=== PATIENT | male | born 1940 | race Caucasian/White ===

== ENCOUNTER 2016-11-07 06:59 | Inpatient (IN) | payer MEDICARE, OTHER ==
[2016-10-10 10:29] VITALS: BMI 32.0
--- NOTE | 2016-10-10 10:36 | PAT Medication Instructions ---
Service Date Oct 10, 2016. Current Home Medication List Acetaminophen Tab (Tylenol), 650 MG PO TID PRN for RN Ampicillin (Ampicillin), 2,000 MG PO UD PRN for RN Aspirin (Aspirin Ec), 81 MG PO QAM Budesonide (Nasal) (Rhinocort Allergy), 1 SPRAY ISHA QPM Ergocalciferol (Vitamin D 88423 Unit), 1 TAB PO WK Insulin Aspart 70/30 (Novolog Mix 70/30), 35 UNITS SC QAM Insulin Aspart Protamine & Asp (Novolog Mix 70/30), 25 UNITS SC QPM Lisinopril (Zestril), 2.5 MG PO QAM Loperamide Hcl (Anti-Diarrheal), 2 MG PO QAM Loratadine (Claritin), 10 MG PO QAM Metoprolol Tartrate (Lopressor) (Lopressor), 25 MG PO BID Multivitamin (Multivitamin), 1 TAB PO QAM Quetiapine Fumarate (Seroquel), 50 MG PO QPM Rosuvastatin Calcium (Crestor), 10 MG PO QAM Sertraline (Zoloft), 100 MG PO QPM Trazodone Hcl (Trazodone), 25 MG PO HS Medication Instructions For Your Scheduled Surgery Ergocalciferol (Vitamin D 60407 Unit), 1 TAB PO WK (okay to continue as directed ) - Check with surgeon for instructions (otherwise okay to continue from anesthesia perspective): Aspirin (Aspirin Ec), 81 MG PO QAM - Hold the following medications the morning of surgery: Multivitamin (Multivitamin), 1 TAB PO QAM Lisinopril (Zestril), 2.5 MG PO QAM Loperamide Hcl (Anti-Diarrheal), 2 MG PO QAM Loratadine (Claritin), 10 MG PO QAM - Take the following medications the morning of surgery with a sip of water: Rosuvastatin Calcium (Crestor), 10 MG PO QAM Acetaminophen Tab (Tylenol), 650 MG PO TID PRN for RN Ampicillin (Ampicillin), 2,000 MG PO UD PRN for RN Metoprolol Tartrate (Lopressor) (Lopressor), 25 MG PO BID - Take the following medications as scheduled the night before surgery: Sertraline (Zoloft), 100 MG PO QPM Trazodone Hcl (Trazodone), 25 MG PO HS Quetiapine Fumarate (Seroquel), 50 MG PO QPM Insulin Aspart Protamine & Asp (Novolog Mix 70/30), 25 UNITS SC QPM Budesonide (Nasal) (Rhinocort Allergy), 1 SPRAY ISHA QPM Ampicillin (Ampicillin), 2,000 MG PO UD PRN for RN Metoprolol Tartrate (Lopressor) (Lopressor), 25 MG PO BID - For Insulin Dependent Diabetic patients: Test blood sugar A.M. of surgery. - If Blood sugar greater than 150, take half of your regular dose of: Insulin Aspart 70/30 (Novolog Mix 70/30), take 17 units - If Blood sugar less than 150, do not take any: Insulin Aspart 70/30 ( Novolog Mix 70/30) If you have any questions please call us at [phone] or [phone] or [phone]
[2016-10-10 13:54] VITALS: BMI 32.0
[2016-11-07] VITALS (22 sets, daily range): BP systolic 86–131; BP diastolic 44–77; PULSE 67–101; TEMP 36.6; O2SAT 91–98; Ht 182.9 cm; Wt 114.1 kg
[~2016-11-07] VITALS: Ht 182.9 cm; Wt 114.1 kg
[~2016-11-07 06:59] MED LIST: ACET325T96 PO; AMPI500C9 PO; ASPI81TA28 PO; BUDE1SUS8 NAE; CLR10 PO; CRS/10 PO; ERGO1CAP41 PO; LACTATED RINGER'S 1000ML 1,000 ML IV SCH; LISI-729 PO; LOPE1CAP6 PO; METO25TA56 PO; MULT-506 PO; NVLGI7030 SC; QUET1TAB32 PO; SERT-234 PO; TRAZ50TA35 PO
--- NOTE | 2016-11-07 08:17 | History and Physical ---
History & Physical Date Nov 07, 2016. History of Present Illness The patient is a 76 year old male with complaints of shortness of breath. 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 He was living independently before his surgery but now is living in an assisted living area. He wishes to return home but remained so weak he has difficulty with dyspnea that he cannot. He's had no fevers. He's had no productive cough. He has a recurrent left pleural effusion. He denies chest pain. He underwent a thoracentesis for 800 mL of bloody fluid a month or so after the surgery and then had another thoracentesis several months after the surgery but only at 20 cc's of dark bloody fluid. CT scan was performed is get some loculations of this left pleural effusion. Dr. Slick Chavez from [facility] referred this patient to me. I had a long talk with the patient in the office and on the morning of surgery. Given his comorbidities he does have some risk with this operation however, I do not think that simply trying to drain this again will be helpful. I also mitral of the fact the patient has an apparent left internal mammary artery pedicle graft. It appears that most of his problems is in the left base. He is eager to have this done in the hopes that his breathing will improve. We are going to proceed with a thoracoscopic decortication and pleurectomy with evacuation of pleural contents on 11/08/2016. Past Medical/Surgical History His past medical history significant for coronary artery disease depression diabetes mellitus, diabetic nephropathy, diabetic peripheral neuropathy, dyslipidemia, hypertension, obesity, and albuminuria. His past surgical history significant for an aortic valve replacement coronary artery bypass grafting January 2016. He's also an appendectomy cataract extraction percutaneous transluminal angioplasty and stent cholecystectomy and history of questionable pancreatic surgery. Allergies Coded Allergies: No Known Allergies (Unverified , 11/07/16) Home Medications Scheduled Aspirin (Aspirin Ec), 81 MG PO QAM Budesonide (Nasal) (Rhinocort Allergy), 1 SPRAY ISHA QPM Ergocalciferol (Vitamin D 10786 Unit), 1 TAB PO WK Insulin Aspart 70/30 (Novolog Mix 70/30), 35 UNITS SC QAM Insulin Aspart Protamine & Asp (Novolog Mix 70/30), 25 UNITS SC QPM Lisinopril (Zestril), 2.5 MG PO QAM Loperamide Hcl (Anti-Diarrheal), 2 MG PO QAM Loratadine (Claritin), 10 MG PO QAM Metoprolol Tartrate (Lopressor) (Lopressor), 25 MG PO BID Multivitamin (Multivitamin), 1 TAB PO QAM Quetiapine Fumarate (Seroquel), 50 MG PO QPM Rosuvastatin Calcium (Crestor), 10 MG PO QAM Sertraline (Zoloft), 100 MG PO QPM Trazodone Hcl (Trazodone), 25 MG PO HS Scheduled PRN Acetaminophen Tab (Tylenol), 650 MG PO TID PRN for RN Ampicillin (Ampicillin), 2,000 MG PO UD PRN for RN Physical Examination Addiitonal Comments: Physical exam this is an elderly male who is sallow in appearance. He is awake alert and oriented. On evaluation of his eyes his sclerae are pale but anicteric. His pupils are equally round and reactive. Extraocular movements appear to be intact. He has no nasal polyps. His tongue is midline. His neck is supple. I detect no supraclavicular cervical lymphadenopathy. He has no carotid bruits. His no neck vein distention or tracheal deviation. His decreased breath sounds on the left. He has a well-healed sternotomy incision with no click. Has a regular rate and rhythm his heart. He is moving air well on the right side. He has no wheezing. His abdomen is a bit protuberant but soft and nontender. 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 He has good bowel sounds and no evidence of abdominal aortic aneurysm. He has good femoral pulses. I can palpate pedal pulses. He doesn't really have any edema. He has no joint effusions. Neurologically he's awake and alert. He is a bit slow to answer. He has no obvious focal deficits and moves all 4 extremities to command. Diagnosis Recurrent left pleural effusion status post coronary artery bypass grafting and aortic valve replacement in January 2016 via a midline sternotomy. Plan of Treatment I did take this patient to the operating room on 11/07/2016 perform a left thoracoscopy with evacuation of pleural contents pleurectomy possible decortication. We have discussed this in the office in detail. He has risks which include bleeding infection lung injury. Is also a chance he could remain ventilator-dependent. I'm concerned about his kidneys also. We discussed this in detail. He states he "cannot live like this ". We will proceed with surgery.
[2016-11-07] MEDS ORDERED: ROCURONIUM BROMIDE 10 MG/ML 5 ML VIAL IV ONE ×2 (08:49→10:43)
[2016-11-07] MEDS ORDERED: LIDOCAINE HCL 2% 2 ML VIAL (20MG/ML) ONE (08:49)
[2016-11-07] MEDS ORDERED: PROPOFOL IV EMULSION 10 MG/ML 20 ML VIAL IV ONE ×2 (08:49→10:12)
[2016-11-07] MEDS ORDERED: FENTANYL CITRATE INJ 50 MCG/1 ML 2 ML VIAL ONE ×3 (08:49→14:57)
[2016-11-07] MEDS ORDERED: BUPIVACAINE LIPOSOME 1/3% 266 MG/20 ML VIAL INFIL ONE ×2 (08:53→13:30)
[2016-11-07] MEDS ORDERED: SODIUM CHLORIDE 0.9% PF 50 ML VIAL ONE ×2 (08:53→13:30)
[2016-11-07] MEDS ORDERED: MIDAZOLAM HCL 1 MG/ML 2ML VIAL ONE (09:02)
[2016-11-07] MEDS ORDERED: CEFAZOLIN SOD 1 GM VIAL ONE (10:10)
[2016-11-07] MEDS ORDERED: LABETALOL HCL IV 5 MG/ML 20ML IV ONE ×2 (10:12→11:09)
[2016-11-07] MEDS ORDERED: MEPERIDINE HCL 25 MG/ML CARP IV PRN (11:15)
[2016-11-07] MEDS ORDERED: ATROPINE SULFATE 0.1 MG/ML 5ML SYR IV PRN (11:15)
[2016-11-07] MEDS ORDERED: ONDANSETRON INJ 2 MG/ML 2 ML VIAL IV PRN ×2 (11:15→15:30)
[2016-11-07] MEDS ORDERED: HYDROmorphone INJ 1 MG/ML SYR IV PRN (11:15)
[2016-11-07] MEDS ORDERED: FENTANYL CITRATE INJ 50 MCG/1 ML 2 ML VIAL IV PRN (11:15)
[2016-11-07] MEDS ORDERED: EpHEDrine SULFATE INJ 50 MG/ML AMP IV PRN (11:15)
[2016-11-07] MEDS ORDERED: LABETALOL HCL IV 5 MG/ML 20ML IV PRN (11:15)
[2016-11-07] MEDS ORDERED: EpHEDrine SULFATE 50MG/5ML SYR ONE (12:50)
[2016-11-07] MEDS ORDERED: GLYCOPYRROLATE INJ 0.2 MG/ML VIAL ONE (13:12)
[2016-11-07] MEDS ORDERED: NEOSTIGMINE METHYLSULFATE 5 MG/5 ML SYR ONE (13:12)
[2016-11-07] MEDS ORDERED: ONDANSETRON INJ 2 MG/ML 2 ML VIAL ONE (13:13)
[2016-11-07] MEDS ORDERED: NovoLIN-R INSULIN PER UNIT CHARGE ONE (14:57)
[2016-11-07] MEDS ORDERED: D5W AND 1/2NSS 1,000 ML IV SCH (15:21)
[2016-11-07] MEDS ORDERED: NITROGLYCERIN/D5W 100 MCG/ML 250 ML IV PRN (15:21)
[2016-11-07] MEDS ORDERED: MoRPHine SULFATE 4 MG/ML 1 ML CARP\\VIAL IV PRN ×2 (15:30→17:15)
[2016-11-07] MEDS ORDERED: PHARMACY GLYCEMIC MGMT CONSULT PRN (15:35)
[2016-11-07] MEDS ORDERED: GLUCOSE 40% GEL 15 GM TUBE PO PRN (16:00)
[2016-11-07] MEDS ORDERED: GLUCOSE 10 TABS/TUBE PO PRN (16:00)
[2016-11-07] MEDS ORDERED: GLUCAGON FOR INJ 1 MG VIAL SQ PRN (16:00)
--- NOTE | 2016-11-07 16:00 | Anesthesiology Progress Note ---
Anesthesia Post Op Note Date & Time Nov 07, 2016 at 15:59 Vital Signs Pain Intensity: 0 Vital Signs Past 12 Hours Date Time Temp Pulse Resp B/P (MAP) Pulse Ox O2 Delivery O2 Flow Rate FiO2 11/07/16 15:56 36.1 84 18 96/59 98 Nasal Cannula 4 11/07/16 14:59 36.2 82 16 86/55 96 Mask 15 11/07/16 08:05 36.6 67 20 131/74 95 Room Air Notes Mental Status: alert / awake / arousable, participated in evaluation Pt Amnestic to Procedure: Yes Nausea / Vomiting: adequately controlled Pain: adequately controlled Airway Patency, RR, SpO2: stable & adequate BP & HR: stable & adequate Hydration State: stable & adequate Anesthetic Complications: no major complications apparent
--- NOTE | 2016-11-07 16:02 | DIAGNOSTIC IMAGING REPORT ---
SINGLE VIEW CHEST CLINICAL HISTORY: Postoperative examination. FINDINGS: An AP, portable, upright chest radiograph is compared to study dated 08/18/2014 and correlated with chest CT dated 09/22/2016. The examination is degraded by portable technique and patient rotation. The patient is status post midline sternotomy. The heart is enlarged and there is atherosclerotic calcification of the thoracic aorta. The pulmonary vasculature is noncongested. A left-sided chest tube has been placed, with the tip terminating at the left apex. There is a small left apical pneumothorax with at least 12 mm of pleural separation. A left pleural effusion has decreased in size. There is residual pleural fluid at the left lung base with left basilar consolidation. The right lung is grossly clear. No right-sided pneumothorax is seen. The skeletal structures are osteopenic. Advanced arthritic change is seen in the shoulders. Subcutaneous emphysema is noted in the left lower neck. IMPRESSION: 1. A left-sided chest tube has been placed. There is a small left apical pneumothorax. 2. Left pleural effusion has decreased in size from the 09/22/[address] There is residual pleural fluid and airspace consolidation at the left lung base. 3. The right lung is grossly clear. 4. Cardiomegaly without radiographic evidence of congestive failure. Electronically signed by: Chiki Peters M.D. 11/07/2016 4:01 PM Dictated Date/Time: 11/07/2016 3:56 PM
--- NOTE | 2016-11-07 16:11 | Pharmacy Progress Note ---
Glycemic Control Intl Consult Date of Service Nov 07, 2016. Scope Glycemic Pharmacist consulted by Dr Marie on 11/07 for glycemic control and to write orders per [facility] inpatient glycemic control protocol Objective Weight (Kilograms): 113.5 Accuchecks BSG (last 24hrs): Test 11/07/16 07:50 11/07/16 14:51 Bedside Glucose 245 mg/dl (70-99) 300 mg/dl (70-99) Laboratory Data (last 24hrs) Test 11/07/16 15:21 HbA1c Ordered for 11/08/16 Recent Pertinent Medications Outpatient Anti-diabetic Regimen: * Novolog 70/30 35 units AM (received 1/2 dose 11/07 AM pre-op), 25 units PM * A1c = unknown, ordered for tomorrow Risk Factors for Insulin Resistance: * Recent Surgery: POD 0 s/p thorascopy/pleurectomy * Diet: T2DM Assessment & Plan ASSESSMENT: * ADA & AACE recommend a goal blood sugar range 140-180 mg/dl for the majority of critically ill & non-critically ill patients. However, more stringent targets may be selected in individual cases. * 76 yo M with unknown outpatient control of diabetes admitted for thorascopy/ pleurectomy * Pre-op BSG 245 mg/dL (patient received 1/2 dose of home Novolog 70/30 this AM) . Post-op BSG elevated to 300 mg/dL - received 10 units of regular insulin SC in OR * Outpatient regimen is premixed basal/prandial insulin of Novolog 70/30 mix insulin. * Pre-mixed insulin is difficult to titrate since it is already in a fixed distribution of basal:prandial insulin. Continuing pre-mixed insulin for admission typically lead to hypoglycemia d/t changing PO status but rapid acting insulin is unable to be held. * Home regimen will be held for admission per pharmacy consult. Will utilize recommended regimen of SQ basal bolus insulin regimen with Lantus + NovoLog (CF+ CR) for now. Will consider transition to NPH as basal insulin tomorrow which will help facilitate easier conversion back to Novolog 70/30 as outpatient * Patient only received 1/2 dose Novolog 70/30 this AM - will be more aggressive with basal insulin x1 now, especially as BSG's are very elevated post -op * Will start weight-based dosing of Novolog * Will add in two overnight BSG checks to provide additional insulin, if necessary PLAN FOR INPATIENT GLYCEMIC CONTROL: * Basal insulin with LANTUS 25 units SQ x1 now - may consider changing to NPH tomorrow * Correctional Insulin with NOVOLOG per scale ACHS with two additional checks overnight * Goal Range: Low 110 mg/dL - High 140 mg/dL * Correction Factor: 20 mg/dL/unit * Nutritional / Prandial insulin per carb ratio of 1 unit per 7 grams CHO consumed * Please note that the plan above was derived based on current level of insulin resistance and hospital stress. These recommendations are appropriate for inpatient admission only. Plan of care upon discharge will need to be reassessed to avoid potential outpatient hypo/hyperglycemia. Thank you.
[2016-11-07 17:01] LABS: HEMATOCRIT 38.5 % (42-52); MEAN CELL VOLUME 87.3 fL (80-100); MEAN CORPUSCULAR HEMOGLOBIN 28.8 pg (25-34); MEAN PLATELET VOLUME 8.8 fL (7.4-10.4); PLATELET COUNT 133 K/uL (130-400); RED BLOOD COUNT 4.41 M/uL (4.7-6.1); WHITE BLOOD COUNT 13.97 K/uL (4.8-10.8)
[2016-11-07] MEDS ORDERED: MoRPHine SULFATE 2 MG/ML CARP IV PRN (17:15)
[2016-11-07 17:17] LABS: CALCIUM 8.9 mg/dl (8.5-10.1); MAGNESIUM 1.7 mg/dl (1.8-2.4)
[2016-11-07] MEDS ORDERED: INSULIN IV INFUSION PROTOCOL STA (17:22)
[2016-11-07] MEDS ORDERED: INSULIN PROTOCOL GOAL RANGE ONE (17:30)
[2016-11-07] MEDS ORDERED: MODERATE STRESS LEVEL ONE (17:30)
[2016-11-07] MEDS ORDERED: INSULIN ASPART 100 UNITS/ML 3 ML PEN SC SCH ×2 (17:45→21:00)
[2016-11-07] MEDS ORDERED: LANTUS PER UNIT CHARGE SQ ONE (17:45)
[2016-11-07] MEDS: SODIUM CHLORIDE 0.45% 1000ML 1,000 ML IV SCH (17:56)
[2016-11-07] MEDS ORDERED: INSULIN HUMAN REGULAR IV BOLUS 3 UNIT in SYRINGE 0 ML IV SCH (18:00)
--- NOTE | 2016-11-07 18:09 | Critical Care Consultation ---
Critical Care Consultation Date of Consultation: Nov 07, 2016. Attending Physician: Humphrey Marie MD Reason for Consultation: Status post LEFT video-assisted thoracoscopy with draining of effusion and decortication History of Present Illness Patient is a 76-year-old male who presents to the ICU after having LEFT video- assisted thoracoscopy with draining of effusion and decortication performed today by Dr. Marei. Patient tolerated procedure well overall. There is estimated blood loss 100 mL. He received 2400 mL of fluids intraoperatively. The patient has a past medical history is complicated by coronary artery disease with CABG and aortic valve (Bovine) replacement performed at [facility]. It was initially thought that this was performed in 2015, however after further conversation, Dr. Bowers feels this was likely done in January 2014. The patient is had subsequent recurrent LEFT-sided pleural effusions. He has had draining of the pleural effusions 3. He suddenly followed up with Dr. angelica gomez and surgical intervention was indicated. Patient currently complains of some mild discomfort to the LEFT-sided chest wall rating his pain at 2/10. He feels well overall. He does describe some mild discomfort in his throat after intubation procedure. He denies any headaches, dizziness, lightheadedness, palpitations, shortness of breath, hemoptysis, vomiting, or extremity pain. Past Medical/Surgical History MEDICAL HISTORY: Coronary artery disease Depression Diabetes mellitus Diabetic neuropathy Diabetic peripheral neuropathy Dyslipidemia Hypertension Obesity Albuminuria SURGICAL HISTORY: Aortic valve replacement Coronary artery bypass grafting PTCA with stenting Cholecystectomy Possible pancreatic surgery Family History No pertinent past family history. Social History Smoking Status: Former Smoker Smokeless Tobacco Use: No Alcohol Use: none Marital Status: Housing Status: half-way Occupation Status: retired Allergies Coded Allergies: No Known Allergies (Unverified , 11/07/16) Home Medications Scheduled Aspirin (Aspirin Ec), 81 MG PO QAM Budesonide (Nasal) (Rhinocort Allergy), 1 SPRAY ISHA QPM Ergocalciferol (Vitamin D 06419 Unit), 1 TAB PO WK Insulin Aspart 70/30 (Novolog Mix 70/30), 35 UNITS SC QAM Insulin Aspart Protamine & Asp (Novolog Mix 70/30), 25 UNITS SC QPM Lisinopril (Zestril), 2.5 MG PO QAM Loperamide Hcl (Anti-Diarrheal), 2 MG PO QAM Loratadine (Claritin), 10 MG PO QAM Metoprolol Tartrate (Lopressor) (Lopressor), 25 MG PO BID Multivitamin (Multivitamin), 1 TAB PO QAM Quetiapine Fumarate (Seroquel), 50 MG PO QPM Rosuvastatin Calcium (Crestor), 10 MG PO QAM Sertraline (Zoloft), 100 MG PO QPM Trazodone Hcl (Trazodone), 25 MG PO HS Scheduled PRN Acetaminophen Tab (Tylenol), 650 MG PO TID PRN for RN Ampicillin (Ampicillin), 2,000 MG PO UD PRN for RN Current Inpatient Medications Current Inpatient Medications Medications (Trade) Dose Ordered Sig/Agata Route Start Time Stop Time Status Last Admin Dose Admin Lactated Ringer's 1,000 ml @ 15 mls/hr Q24H IV 11/07/16 06:00 11/08/16 05:59 11/07/16 08:13 15 MLS/HR Miscellaneous Information (Consult Glycemic Management Pharmacy) 1 ea UD PRN N/A 11/07/16 15:35 12/07/16 15:34 Nitroglycerin/ Dextrose 250 ml @ 0 mls/hr Q0M PRN IV 11/07/16 15:21 12/07/16 15:20 Metoclopramide HCl 10 mg/Syringe 2 ml @ 2 mls/min Q8H IV 11/08/16 13:00 11/10/16 05:00 Ondansetron HCl (Zofran Inj) 4 mg Q6H PRN IV 11/07/16 15:30 12/07/16 15:29 Aspirin (Ecotrin Tab) 81 mg QAM PO 11/08/16 09:00 12/08/16 08:59 Budesonide (Rhinocort Aq Nasal [place]) 1 sprays QPM ISHA 11/07/16 21:00 12/07/16 20:59 Lisinopril (Zestril Tab) 2.5 mg QAM PO 11/08/16 09:00 12/08/16 08:59 Loperamide HCl (Imodium Cap) 2 mg QAM PO 11/08/16 09:00 12/08/16 08:59 Loratadine (Claritin Tab) 10 mg QAM PO 11/08/16 09:00 12/08/16 08:59 Metoprolol Tartrate (Lopressor Tab) 25 mg BID PO 11/07/16 21:00 12/07/16 20:59 Multivitamins (Multivitamin Tab) 1 tab QAM PO 11/08/16 09:00 12/08/16 08:59 Quetiapine Fumarate (seroQUEL TAB) 50 mg QPM PO 11/07/16 21:00 12/07/16 20:59 Sertraline HCl (Zoloft Tab) 100 mg QPM PO 11/07/16 21:00 12/07/16 20:59 Trazodone HCl (Desyrel Tab) 25 mg HS PO 11/07/16 21:00 12/07/16 20:59 Glucose (Glucose 40% Gel) 15-30 GRAMS 15 GRAMS... UD PRN PO 11/07/16 16:00 12/07/16 15:59 Glucose (Glucose Chew Tab) 4-8 Tablets 4 Tabl... UD PRN PO 11/07/16 16:00 12/07/16 15:59 Dextrose (Dextrose 50% 50ML Syringe) 25-50ML OF 50% DW IV FOR... UD PRN IV 11/07/16 16:00 12/07/16 15:59 Glucagon (Glucagon Inj) 1 mg UD PRN SQ 11/07/16 16:00 12/07/16 15:59 Sodium Chloride 1,000 ml @ 100 mls/hr Q10H IV 11/07/16 16:00 12/07/16 15:59 Morphine Sulfate (MoRPHine SULFATE INJ) 2 mg Q2H PRN IV 11/07/16 17:15 11/21/16 17:14 Morphine Sulfate (MoRPHine SULFATE INJ) 4 mg Q2H PRN IV 11/07/16 17:15 11/21/16 17:14 Insulin Glargine (Lantus Per Unit) 25 units NOW ONCE SQ 11/07/16 17:45 11/07/16 17:46 Insulin Aspart (novoLOG ASPART) SLIDING SCALE ACHS SC 11/07/16 17:45 12/07/16 17:44 Insulin Aspart (novoLOG ASPART) SLIDING SCALE TODAY@0000,0400 SC 11/08/16 00:00 11/08/16 04:01 Review of Systems A complete 10-point Review of Systems was discussed with the patient, with pertinent positives and negatives listed in the History of Present Illness. All remaining Review of Systems questions can be considered negative unless otherwise specified. Physical Exam Date Time Temp Pulse Resp B/P (MAP) Pulse Ox O2 Delivery O2 Flow Rate FiO2 11/07/16 16:20 96/57 1817 16:20 96/57 1817 16:18 86 22 94/40 97 1817 16:18 86 22 94/40 97 17 16:18 87 22 17 16:18 87 22 1817 16:15 95/57 17 16:15 95/57 11/07/16 16:13 86 19 11/07/16 16:13 86 19 93/40 97 17 16:13 86 19 17 16:13 86 19 93/40 97 17 16:10 99/55 17 16:10 99/55 11/07/16 16:08 85 26 17 16:08 86 26 92/37 98 1817 16:08 85 26 17 16:08 86 26 92/37 98 1817 16:05 92/55 17 16:05 92/55 11/07/16 16:03 85 19 1817 16:03 85 19 97/40 97 1817 16:03 85 19 97/40 97 1817 16:03 85 19 1817 16:00 95/56 17 16:00 95/56 17 15:58 85 20 18/17 15:58 86 20 93/38 98 18/17 15:58 86 20 93/38 98 18/17 15:58 85 20 18/17 15:56 36.1 84 18 96/59 98 Nasal Cannula 4 11/07/16 15:55 96/59 18/17 15:55 96/59 18/17 15:53 85 20 102/42 98 18/17 15:53 85 20 18/17 15:53 85 20 102/42 98 18/17 15:53 85 20 18/17 15:50 88/57 8/18/17 15:50 88/57 8/18/17 15:48 88 28 8/18/17 15:48 88 28 8/18/17 15:48 86 28 93/39 99 8/18/17 15:48 86 28 93/39 99 8/18/17 15:45 98/56 8/18/17 15:45 98/56 8/18/17 15:43 85 23 103/42 97 8/18/17 15:43 85 23 103/42 97 8/18/17 15:43 85 23 8/18/17 15:43 85 23 8/18/17 15:40 93/57 8/18/17 15:40 93/57 8/18/17 15:38 83 20 93/40 97 8/18/17 15:38 84 20 8/18/17 15:38 83 20 93/40 97 8/18/17 15:38 84 20 8/18/17 15:35 91/54 8/18/17 15:35 91/54 8/18/17 15:33 84 19 93/40 97 8/18/17 15:33 85 19 8/18/17 15:33 85 19 8/18/17 15:33 84 19 93/40 97 8/18/17 15:30 94/53 8/18/17 15:30 94/53 8/18/17 15:28 85 20 92/38 98 8/18/17 15:28 79 20 8/18/17 15:28 85 20 92/38 98 8/18/17 15:28 79 20 8/18/17 15:25 89/55 8/18/17 15:25 89/55 8/18/17 15:23 85 20 8/18/17 15:23 85 20 92/39 99 8/18/17 15:23 85 20 92/39 99 8/18/17 15:23 85 20 8/18/17 15:20 96/58 8/18/17 15:20 96/58 8/18/17 15:18 83 20 94/40 97 8/18/17 15:18 83 20 8/18/17 15:18 83 20 8/18/17 15:18 83 20 94/40 97 8/18/17 15:15 97/54 8/18/17 15:15 97/54 8/18/17 15:13 82 20 1817 15:13 83 20 94/40 100 11/07/16 15:13 82 20 17 15:13 83 20 94/40 100 17 15:10 94/53 11/07/16 15:10 94/53 11/07/16 15:08 83 22 11/07/16 15:08 83 22 89/39 97 11/07/16 15:08 83 22 89/39 97 11/07/16 15:08 83 22 11/07/16 15:05 95/55 11/07/16 15:05 95/55 11/07/16 15:03 82 20 93/40 99 11/07/16 15:03 82 20 93/40 99 11/07/16 15:03 82 20 11/07/16 15:03 82 20 11/07/16 15:00 108/59 11/07/16 15:00 108/59 11/07/16 14:59 36.2 82 16 86/55 96 Mask 15 11/07/16 14:58 84 19 11/07/16 14:58 84 19 11/07/16 14:58 84 19 119/49 97 11/07/16 14:58 84 19 119/49 97 11/07/16 14:55 123/84 11/07/16 14:55 123/84 11/07/16 14:53 82 22 86/38 97 11/07/16 14:53 83 22 11/07/16 14:53 82 22 86/38 97 11/07/16 14:53 83 22 11/07/16 14:50 101/55 11/07/16 14:50 101/55 11/07/16 14:48 83 22 11/07/16 14:48 82 22 86/55 98 11/07/16 08:05 36.6 67 20 131/74 95 Room Air VITAL SIGNS - Vital signs and nursing notes were reviewed. GENERAL - 76-year-old male appearing his stated age who is in no acute distress. Communicates well with provider and answers questions appropriately. There does appear to be an element of confusion. HEAD - NC/AT. EYES - PERRL with EOMI bilaterally. Sclera anicteric. Palpebral conjunctiva pink and moist with no injection noted. NOSE - Midline and without cyanosis. No epistaxis or purulent drainage noted. Septum midline without deviation or septal hematoma noted. MOUTH/OROPHARYNX - Without perioral cyanosis. Buccal mucosa pink and moist and without leukoplakia. Tongue midline with equal elevation of palate bilaterally. No tonsillar hypertrophy, erythema, or exudates noted. NECK - Neck with FROM. Supple to palpation. LUNGS - Chest wall symmetric without accessory muscle use, intercostals retractions, or central cyanosis. Normal vesicular breath sounds CTA B/L. No wheezes, rales, or rhonchi appreciated. Chest tube in place to the LEFT lateral chest well with scant bloody discharge noted in the tube. CARDIAC - RRR with S1/S2. No murmur, rubs, or gallops appreciated. No reproducible tenderness to palpation appreciated over the anterior chest wall. ABDOMEN - Abdominal contour obese and without pulsations or visible masses. BS normoactive all four quadrants. No tenderness, palpable masses, hepatosplenomegaly, or ascites noted. EXTREMITIES - No clubbing or peripheral cyanosis. No pretibial edema present. +3 /5 radial and dorsalis pedis pulses palpated throughout. +5/5 strength noted in UE/LE bilaterally. NEUROLOGIC - Cranial nerves II through XII grossly intact. PSYCH - A&Ox3 and cooperates fully with examiner. Pt is very pleasant and interacts well with examiner. Laboratory Results Last 24 Hours Test 11/07/16 07:50 11/07/16 14:51 11/07/16 16:51 Bedside Glucose 245 mg/dl 300 mg/dl White Blood Count 13.97 K/uL Red Blood Count 4.41 M/uL Hemoglobin 12.7 g/dL Hematocrit 38.5 % Mean Corpuscular Volume 87.3 fL Mean Corpuscular Hemoglobin 28.8 pg Mean Corpuscular Hemoglobin Concent 33.0 g/dl RDW Standard Deviation 46.4 fL RDW Coefficient of Variation 14.6 % Platelet Count 133 K/uL Mean Platelet Volume 8.8 fL Calcium Level 8.9 mg/dl Magnesium Level 1.7 mg/dl Diagnostic Results Radiological imaging and reports were reviewed by myself. Radiologist's Interpretation as follows: SINGLE VIEW CHEST CLINICAL HISTORY: Postoperative examination. FINDINGS: An AP, portable, upright chest radiograph is compared to study dated 08/18/2014 and correlated with chest CT dated 09/22/2016. The examination is degraded by portable technique and patient rotation. The patient is status post midline sternotomy. The heart is enlarged and there is atherosclerotic calcification of the thoracic aorta. The pulmonary vasculature is noncongested. A left-sided chest tube has been placed, with the tip terminating at the left apex. There is a small left apical pneumothorax with at least 12 mm of pleural separation. A left pleural effusion has decreased in size. There is residual pleural fluid at the left lung base with left basilar consolidation. The right lung is grossly clear. No right-sided pneumothorax is seen. The skeletal structures are osteopenic. Advanced arthritic change is seen in the shoulders. Subcutaneous emphysema is noted in the left lower neck. IMPRESSION: 1. A left-sided chest tube has been placed. There is a small left apical pneumothorax. 2. Left pleural effusion has decreased in size from the 09/22/[address] There is residual pleural fluid and airspace consolidation at the left lung base. 3. The right lung is grossly clear. 4. Cardiomegaly without radiographic evidence of congestive failure. Assessment & Plan (1) Diabetes (2) CAD (coronary artery disease) (3) H/O aortic valve replacement (4) Hypertension (5) Pleural effusion on left (6) Heart disease (7) Depression Reason Critically Ill: Admitted for close monitoring status post LEFT video- assisted thoracoscopy with draining of effusion and decortication. Neuro - * CAM ICU: NEGATIVE * Pain control as needed s/p VATS - Morphine on order. * Depression: Home Rx Cardiac - * History of CABG w/ Bovine Aortic Valve Replacement. * Continue outpatient medications. * Monitor on telemetry. * Hypertension * Continue home Rx. * EKGs for any chest pain. Respiratory - * Status Post LEFT VATS w/ Drainage of Pleural Effusion and Decortication. * Chest Tube in place with 30 suction on 4h/off 4h per Dr. Marie. * Small LEFT Apical Pneumothorax. * To be expected. Monitor for hemodynamic instability. * Repeat CXRs to resolution. * Dr. Marie requests consult for any issues overnight. GI - * Diabetic Diet. * Progress as tolerated. RENAL/LYTES - * Monitor electrolytes daily - correct appropriately. * Received 2400 mL IVF in OR. Will discontinue once tolerating POs. - * Isaacs Catheter in place. * Consider d/c in AM if patient continues to progress. ENDO - * DM: * Insulin gtt initiated for BSGs >249. * Likely 2/2 stress of recent surgery. Will reassess per protocol. HEME - * Stable H&H. * Will monitor closely for any hemodynamic instability. ID - * No s/s of infection at this point. * Monitor fever curve. LINES/IV ACCESS - * PIVs intact. * RIGHT Radial Arterial Line In Place * LEFT Chest Tube DVT PROPHYLAXIS - * SCDs in place. * Defer chemical prophylaxis to surgeon. Thank you for this consultation allow us to be part of this patient's care. Please refer to my attending physician's documentation for any further recommendations. I have personally evaluated and examined this patient. I agree with assessment and plan of Guerrero Gonzalez PA-C. Hyperglycemia, starting insulin gtt, will transition off tomorrow most likely. Problem Qualifiers (1) Diabetes: Diabetes mellitus complication status: with unspecified complications (2) CAD (coronary artery disease): Coronary Disease-Associated Artery/Lesion type: unspecified vessel or lesion type [place] vs. transplanted heart: [place] heart Associated angina: angina presence unspecified Qualified Codes: I25.10 - Atherosclerotic heart disease of [place] coronary artery without angina pectoris (3) Hypertension: Hypertension type: unspecified Qualified Codes: I10 - Essential (primary) hypertension
[2016-11-07] MEDS: INSULIN REGULAR 250 UNITS in SODIUM CHLORIDE 0.9% 250ML 250 ML IV SCH (18:39)
[2016-11-07 18:43] LABS: BUN/CREATININE RATIO 18.2 (10-20); CALCIUM 8.7 mg/dl (8.5-10.1); CREATININE 0.9 mg/dl (0.60-1.40); POTASSIUM 4.3 mmol/L (3.5-5.1)
--- NOTE | 2016-11-07 18:44 | OPERATIVE REPORT ---
DATE OF OPERATION: 11/07/2016 PREOPERATIVE DIAGNOSIS: Complicated left pleural effusion. POSTOPERATIVE DIAGNOSIS: Same. PROCEDURE: 1. Left thoracoscopy with extensive decortication: 2. Evacuation of pleural contents with partial pleurectomy. SURGEON: Dr. Marie. ANESTHESIA: General anesthesia with endotracheal intubation with double lumen tube. SPECIFICS OF PROCEDURE AND FINDINGS: Mr. Wild is a 76-year-old male who underwent an aortic valve replacement with a pericardial valve and a coronary artery bypass grafting at [facility] in January 2014. He was living independently before surgery, but now is in assisted living area and states that his breathing is so poor, he cannot "manage." He was worked up by Dr. Murray Chavez from [facility] who was tapped him twice. He has a complicated pleural effusion and he asked me to evaluate him for thoracoscopy. On 11/07/2016, we took patient to the operating room and did an extensive decortication. I was quite pleased with his lung as we freed it completely. It expanded quite nicely. It was a meticulous operation, but we had a very small air leak at the conclusion of the case and he really had a very little in the way of bleeding. He tolerated it well and was extubated in the room. PROCEDURE: The patient brought to the operating room and laid in supine position. General anesthesia was induced and endotracheal intubation performed with a double lumen tube. After appropriate monitoring lines were placed and prophylactic antibiotics were given. The patient was turned in right lateral decubitus position and his left chest was prepped and draped in the usual sterile fashion. I made the incision bit more posterior than normal, so was actually posterior to the tip of the scapula and placed a 5 mm port and insufflated CO2. I then placed a 5 mm scope and could see that we were in, what appeared to be old blood. I then made another incision down about the eighth interspace anteriorly, between these 2 started removing the contents in the pleural cavity. I opened up both these incisions to allow us to introduce thoracoscopy instruments. With the use of the suction and with use of the forceps, we removed a large amount of this gelatinous material, which appeared to be chronic blood. After cleaning this out, I was quite happy with its appearance. I then started taking down the adhesions of the lung to the chest wall, I was able to peel this off quite nicely bluntly and tied down to the point where I made another 2.5 cm incision at about the fifth interspace in anterior axillary line. Between 3 spaces were able to interchange the camera and the instruments and we were able to only evacuate all the material but also then do a meticulous decortication from the apex all the way down to the diaphragm. Also, I did a partial pleurectomy. The Aquamantys was used to control bleeding. I did not see any evidence of any neoplasm, but we did send off a great deal of tissue to the lab. I was able to do a full decortication of the left lower lobe and the left upper lobe, although I left the medial left upper lobe in place and there is an internal mammary pedicle graft in this area. The pleura was not taken in this area. I also removed some of this fibrinous material off the diaphragm. I cleaned out both the diaphragmatic sulci all the way around its diaphragmatic sulcus all the way around and after cleaning all this I was quite happy with its appearance. It was irrigated out with 2 liters of warm saline. We had a couple of very small air leaks but there were really not an area we would repair these. I had removed all the peel that I could find. I then mixed 266 mg of Exparel with 60 mL of normal saline and injected it do a block from the 2nd to the 11th rib with liposomal bupivacaine. A 24-Bel[place] chest tube was then placed directed towards the apex. We really had very little in the way of bleeding. There was a very tiny air leak at the conclusion of the case. I sutured this chest tube in with 0 silk suture. All the muscle layers of the 3 thoracoscopy ports were closed with 0 Vicryl. 4-0 Monocryl was used doing surgical fashion to approximate the wound edges. We lost about 100 mL of blood. The patient tolerated the procedure well and was extubated in the room. I attest to the content of the Intraoperative Record and any orders documented therein. Any exception s are noted below.
[2016-11-07] MEDS ORDERED: INSULIN 70% ASPART PROTAMINE/30% ASPART SC SCH (21:00)
[2016-11-07] MEDS: METOPROLOL TARTRATE 25 MG TAB PO SCH (21:00)
[2016-11-07] MEDS: INSULIN ASPART 100 UNITS/ML 3 ML PEN SC SCH (22:01)
[2016-11-07] MEDS: TRAZODONE HCL 50 MG TAB PO SCH (22:02)
[2016-11-07] MEDS: BUDESONIDE AQ (RHINOCORT AQ) NASAL SPRAY 32 MCG NAE SCH (22:03)
[2016-11-07] MEDS: SERTRALINE HCL 100 MG TAB PO SCH (22:04)
[2016-11-07] MEDS: QUETIAPINE FUMARATE 25 MG TAB PO SCH (22:04)
[2016-11-08] VITALS (17 sets, daily range): BP systolic 93–124; BP diastolic 56–73; PULSE 90–108; TEMP 36.3–37.1; O2SAT 89–97
[2016-11-08] MEDS: SODIUM CHLORIDE 0.45% 1000ML 1,000 ML IV SCH (02:47)
[2016-11-08 06:05] LABS: HEMATOCRIT 35.7 % (42-52); MEAN CELL VOLUME 85.2 fL (80-100); MEAN CORPUSCULAR HEMOGLOBIN 28.9 pg (25-34); MEAN CORPUSCULAR HGB CONC 33.9 g/dl (32-36); PLATELET COUNT 131 K/uL (130-400); RED BLOOD COUNT 4.19 M/uL (4.7-6.1); WHITE BLOOD COUNT 10.95 K/uL (4.8-10.8)
[2016-11-08 06:42] LABS: BUN/CREATININE RATIO 17.7 (10-20); CALCIUM 8.5 mg/dl (8.5-10.1); CREATININE 0.74 mg/dl (0.60-1.40); MAGNESIUM 1.8 mg/dl (1.8-2.4); PHOSPHORUS 2.3 mg/dl (2.5-4.9); POTASSIUM 3.9 mmol/L (3.5-5.1)
[2016-11-08 07:08] LABS: ESTIMATED AVERAGE GLUCOSE 229 mg/dl; HA1C FLAG Normal (Normal)
--- NOTE | 2016-11-08 07:15 | DIAGNOSTIC IMAGING REPORT ---
CHEST ONE VIEW PORTABLE CLINICAL HISTORY: s/p VATS COMPARISON STUDY: Chest radiograph November 07, 2016. FINDINGS: A left chest tube remains in place. A small left apical pneumothorax has decreased in size. Pleural separation is 4 mm. There is associated small left pleural effusion. Left basilar opacity persists. There is mild right basilar opacity. These opacities have slightly increased. There is no radiographic evidence of pulmonary edema. Median sternotomy wires and mediastinal surgical clips are noted. Subcutaneous gas within the left lower neck is noted. IMPRESSION: 1. Small left apical pneumothorax, decreased in size since prior exam. Left chest tube in place. 2. Increase in bibasilar opacities with a small left pleural effusion. Electronically signed by: Dewey Aiken M.D. 11/08/2016 7:14 AM Dictated Date/Time: 11/08/2016 7:12 AM
[2016-11-08] MEDS: LORATADINE 10 MG TAB PO SCH (07:50)
[2016-11-08] MEDS: METOPROLOL TARTRATE 25 MG TAB PO SCH ×2 (07:50→21:16)
[2016-11-08] MEDS: MULTIVITAMIN TAB PO SCH (07:50)
[2016-11-08] MEDS: LISINOPRIL 2.5 MG TAB PO SCH (07:51)
[2016-11-08] MEDS: ASPIRIN 81 MG ECTAB PO SCH (07:51)
[2016-11-08] MEDS: LOPERAMIDE HCL 2 MG CAP PO SCH (07:51)
[2016-11-08] MEDS ORDERED: ACETAMINOPHEN 325 MG TAB PO PRN (08:15)
--- NOTE | 2016-11-08 08:38 | SURGERY PROGRESS NOTE ---
DATE: 11/08/2016 Mr. Wild is sitting up in a chair. He has finished eating his breakfast. This 76-year-old male underwent extensive decortication for what appeared to be an old hemothorax of the left chest. He responded very well to this. He had a fairly quiet night. He had Isaacs catheter left in place in the ICU. His vital signs have been relatively stable, although his blood pressure has not been as high as I would have liked. He has made good urine and he has no evidence of any hypoperfusion. He is still a bit confused at times. I did have a very long discussion with this patient's sister and [id number] last night about his status. He has decreased breath sounds on the left side. He has no neck vein distention. His oral mucosa is moist. He has a regular rate and rhythm of his heart. His abdomen is soft and he has had good bowel sounds. His sequential compression devices are in place. Reviewing his labs revealed sodium of 133, a carbon dioxide 27, BUN and creatinine of 13 and 0.74 respectively. White count is 10,950 with hemoglobin of 12.1. His x-ray shows some expected postoperative changes but really I think it looks very good. We will send him to floor later today. I have discussed this case with the stone layer. We are also going to have the hospitalist to help manage some of his medical issues. Hopefully, we will get him back to the extended care facility in 48 hours. MAHOGANY
[2016-11-08] MEDS ORDERED: INSULIN GLARGINE SOLOSTAR 100 UNITS/ML 3 ML PEN SC ONE ×2 (09:00→09:30)
[2016-11-08] MEDS ORDERED: INSULIN 70% ASPART PROTAMINE/30% ASPART SC SCH (09:00)
[2016-11-08] MEDS ORDERED: PNEUMOCOCCAL POLYSACCHARIDES 25 MCG/0.5 ML VIAL/SYR IM. ONE (09:00)
[2016-11-08] MEDS ORDERED: PNEUMOCOCCAL ADMINISTRATION CHARGE ONE (09:00)
[2016-11-08] MEDS: ROSUVASTATIN CALCIUM 10 MG TAB PO SCH (09:21)
[2016-11-08] MEDS ORDERED: INSULIN ASPART 100 UNITS/ML 3 ML PEN SC SCH ×3 (11:00)
[2016-11-08] MEDS: INSULIN REGULAR 250 UNITS in SODIUM CHLORIDE 0.9% 250ML 250 ML IV SCH ×9 (11:09→23:06)
--- NOTE | 2016-11-08 12:35 | Critical Care Progress Note ---
Critical Care Progress Note Date of Service Nov 08, 2016. ICU Day ICU Day Number: [address] Ying Subjective Mr. Wild is well, and denies any acute overnight events. He denies CP, SOB, palpitations. He is tolerating diet. He still has a barillas in place and thus has not been ambulating Objective GENERAL - alert, well appearing, thin, sitting in chair, no acute distress, non- toxic HEAD - NC/AT. EYES - PERRL with EOMI bilaterally. Normal sclera and conjunctiva MOUTH/OROPHARYNX - Without perioral cyanosis. No exudate, no erythema. Lips, buccal mucosa, and tongue normal and mucous membranes are tacky NECK - Neck with FROM. Supple, no adenopathy, non-tender LUNGS - Chest wall symmetric without accessory muscle use. Clear to auscultation , although diminished air entry on left. Some crackles, no wheezes Chest tube in place to the LEFT lateral chest well with hemoserous discharge noted in the tube. CARDIAC - RRR with S1 and S2 normal, no murmurs appreciated. No reproducible tenderness to palpation appreciated over the anterior chest wall. ABDOMEN - Abdominal contour obese and without pulsations or visible masses. BS normoactive all four quadrants. No tenderness, palpable masses, hepatosplenomegaly, or ascites noted. SKIN: Warm, pink, dry. No erythema, rashes, or bruising. EXTREMITIES - No clubbing or peripheral cyanosis. No pretibial edema present. +3 /5 radial and dorsalis pedis pulses palpated throughout. NEUROLOGIC - Alert, Ox3. No focal deficits. Normal sensorium, cranial nerves II- XII grossly intact, +5/5 strength noted in UE/LE bilaterally, normal speech. PSYCH - Mood and affect appropriate. Current SOFA Score SOFA Score Response (Comments) Value Platelets (x10) < 150 1 Bilirubin (mg/dL) < 1.2 0 Byers Coma Score 15 0 Level of Hypotension No Hypotension 0 Creatinine (mg/dL) < 1.2 0 Total 1 Assessment & Plan Reason Critically Ill: Admitted for close monitoring status post LEFT video- assisted thoracoscopy with draining of effusion and decortication. Neuro - * CAM ICU: NEGATIVE * Pain control as needed s/p VATS - Morphine PRN. * Depression: Continue home medications Cardiac - * History of CABG w/ bovine aortic valve replacement: Continue outpatient medications. * Hypertension: Continue home medications * Monitor on telemetry. EKGs for any chest pain. Respiratory - * S/p LEFT VATS w/ drainage of pleural effusion and decortication. Chest Tube in place with 30 suction on 4h/off 4h, as per Dr. Marie. * Small LEFT Apical Pneumothorax. To be expected. Monitor for hemodynamic instability. Repeat CXRs to resolution. GI - * Diabetic Diet tolerated. RENAL/LYTES - * Monitor electrolytes daily - correct appropriately. * Discontinue IVF as tolerating diet - * Discontinue Barillas catheter ENDO - * DM: Discontinue insulin drip and transitioned to basal bolus regimen HEME - * Stable H&H. Will monitor closely for any hemodynamic instability. ID - * No s/s of infection at this point. Monitor fever curve. LINES/IV ACCESS - * PIVs intact. * RIGHT Radial Arterial Line In Place * LEFT Chest Tube DVT PROPHYLAXIS - * SCDs in place. * Defer chemical prophylaxis to surgeon. Resident Physician Supervision Note: Dr. Marti was resident physician during care of patient. I separately evaluated patient and did history and exam. I discussed the case with the resident and generally agree with the findings and plan. Tolerating PO, stable for downgrade today. Documented By: Alexander Ying DO Consults & Procedures Consultants: Cardiothoracic: Dr. Marie Procedures: PIVs Right Radial Arterial Line In Place Left VATS w/ drainage of pleural effusion and decortication Left chest tube Data Medications: Current Inpatient Medications Medications (Trade) Dose Ordered Sig/Agata Route Start Time Stop Time Status Last Admin Dose Admin Miscellaneous Information (Consult Glycemic Management Pharmacy) 1 ea UD PRN N/A 11/07/16 15:35 12/07/16 15:34 Ondansetron HCl (Zofran Inj) 4 mg Q6H PRN IV 11/07/16 15:30 12/07/16 15:29 Aspirin (Ecotrin Tab) 81 mg QAM PO 11/08/16 09:00 12/08/16 08:59 11/08/16 07:51 81 MG Budesonide (Rhinocort Aq Nasal Beltrami) 1 sprays QPM ISHA 11/07/16 21:00 12/07/16 20:59 11/07/16 22:03 1 SPRAYS Lisinopril (Zestril Tab) 2.5 mg QAM PO 11/08/16 09:00 12/08/16 08:59 11/08/16 07:51 2.5 MG Loperamide HCl (Imodium Cap) 2 mg QAM PO 11/08/16 09:00 12/08/16 08:59 11/08/16 07:51 2 MG Loratadine (Claritin Tab) 10 mg QAM PO 11/08/16 09:00 12/08/16 08:59 11/08/16 07:50 10 MG Metoprolol Tartrate (Lopressor Tab) 25 mg BID PO 11/07/16 21:00 12/07/16 20:59 11/08/16 07:50 25 MG Multivitamins (Multivitamin Tab) 1 tab QAM PO 11/08/16 09:00 12/08/16 08:59 11/08/16 07:50 1 TAB Quetiapine Fumarate (seroQUEL TAB) 50 mg QPM PO 11/07/16 21:00 12/07/16 20:59 11/07/16 22:04 50 MG Sertraline HCl (Zoloft Tab) 100 mg QPM PO 11/07/16 21:00 12/07/16 20:59 11/07/16 22:04 100 MG Trazodone HCl (Desyrel Tab) 25 mg HS PO 11/07/16 21:00 12/07/16 20:59 11/07/16 22:02 25 MG Glucose (Glucose 40% Gel) 15-30 GRAMS 15 GRAMS... UD PRN PO 11/07/16 16:00 12/07/16 15:59 Glucose (Glucose Chew Tab) 4-8 Tablets 4 Tabl... UD PRN PO 11/07/16 16:00 12/07/16 15:59 Dextrose (Dextrose 50% 50ML Syringe) 25-50ML OF 50% DW IV FOR... UD PRN IV 11/07/16 16:00 12/07/16 15:59 Glucagon (Glucagon Inj) 1 mg UD PRN SQ 11/07/16 16:00 12/07/16 15:59 Insulin Human Regular 250 units/ Sodium Chloride 252.5 ml @ 0 mls/hr DAILY@1130 IV 11/07/16 18:01 11/08/16 15:00 11/08/16 12:08 8.8 MLS/HR Acetaminophen (Tylenol Tab) 650 mg TID PRN PO 11/08/16 08:15 12/08/16 08:14 11/08/16 09:26 650 MG Rosuvastatin Calcium (Crestor Tab) 10 mg QAM PO 11/08/16 09:00 12/08/16 08:59 11/08/16 09:21 10 MG Insulin Aspart (novoLOG ASPART) SLIDING SCALE ACHS SC 11/08/16 11:00 12/08/16 10:59 Miscellaneous Information (Dc Iv Insulin Infusion) 1 ea TODAY@1500 ONCE N/A 11/08/16 15:00 11/08/16 15:01 Insulin Glargine (Lantus Solostar Pen) 25 units Q12 SC 11/08/16 21:00 12/08/16 20:59 Vital Signs: Date Time Temp Pulse Resp B/P (MAP) Pulse Ox O2 Delivery O2 Flow Rate FiO2 11/08/16 10:00 36.9 103 20 94 2.0 11/08/16 10:00 36.7 98 20 102/58 (73) 93 Nasal Cannula 2.0 11/08/16 09:00 103 20 93/56 (68) 94 Nasal Cannula 2.0 11/08/16 08:00 94 Nasal Cannula 2.0 11/08/16 08:00 36.9 104 20 109/64 (79) 94 Nasal Cannula 2.0 11/08/16 06:00 90 105/61 (76) 95 Nasal Cannula 2.0 11/08/16 05:00 94 94/60 (71) Nasal Cannula 2.0 11/08/16 04:17 97 Nasal Cannula 2.0 11/08/16 04:00 94 108/62 (77) 95 Nasal Cannula 2.0 11/08/16 03:00 96 99/62 (74) 11/08/16 02:00 96 104/64 (77) 11/08/16 01:00 37.1 96 98/63 (75) 96 11/08/16 00:06 97 Nasal Cannula 2.0 11/08/16 00:00 37.1 99 95/58 (70) 96 11/07/16 23:30 100 90/58 (69) 11/07/16 23:15 101 94/61 (72) 94 8/18/17 23:00 100 95/61 (72) 18/17 22:45 99 91/58 (69) 96 18/17 22:30 97 98/62 (74) 818/17 22:15 86 106/67 (80) 96 818/17 22:00 98 101/65 (77) 1817 21:45 98 103/64 (77) 1817 21:31 100 105/46 (65) 91 1817 21:15 92 120/77 (91) 96 18/17 21:00 90 115/75 (88) 97 1817 20:45 92 120/75 (90) 1817 20:30 90 113/67 (82) 98 1817 20:15 92 114/75 (88) 94 1817 20:08 97 Nasal Cannula 2.0 11/07/16 20:00 90 95/57 (70) 1817 19:45 89 86/58 (67) 96 1817 19:30 89 107/67 (80) 18/17 19:15 91 90/60 (70) 18/17 19:00 92 96/57 (70) 1817 18:13 36.6 91 16 95/58 (70) 97 Nasal Cannula 2.0 101/44 (63) 1817 16:20 96/57 18/17 16:20 96/57 18/17 16:18 86 22 94/40 97 18/17 16:18 86 22 94/40 97 18/17 16:18 87 22 18/17 16:18 87 22 18/17 16:15 95/57 18/17 16:15 95/57 18/17 16:13 86 19 18/17 16:13 86 19 93/40 97 18/17 16:13 86 19 18/17 16:13 86 19 93/40 97 18/17 16:10 99/55 18/17 16:10 99/55 18/17 16:08 85 26 18/17 16:08 86 26 92/37 98 18/17 16:08 85 26 8/18/17 16:08 86 26 92/37 98 8/18/17 16:05 92/55 8/18/17 16:05 92/55 8/18/17 16:03 85 19 8/18/17 16:03 85 19 97/40 97 8/18/17 16:03 85 19 97/40 97 8/18/17 16:03 85 19 8/18/17 16:00 95/56 8/18/17 16:00 95/56 8/18/17 15:58 85 20 8/18/17 15:58 86 20 93/38 98 8/18/17 15:58 86 20 93/38 98 8/18/17 15:58 85 20 8/18/17 15:56 36.1 84 18 96/59 98 Nasal Cannula 4 8/18/17 15:55 96/59 8/18/17 15:55 96/59 8/18/17 15:53 85 20 102/42 98 8/18/17 15:53 85 20 8/18/17 15:53 85 20 102/42 98 8/18/17 15:53 85 20 8/18/17 15:50 88/57 8/18/17 15:50 88/57 8/18/17 15:48 88 28 8/18/17 15:48 88 28 8/18/17 15:48 86 28 93/39 99 8/18/17 15:48 86 28 93/39 99 8/18/17 15:45 98/56 8/18/17 15:45 98/56 8/18/17 15:43 85 23 103/42 97 8/18/17 15:43 85 23 103/42 97 8/18/17 15:43 85 23 8/18/17 15:43 85 23 8/18/17 15:40 93/57 8/18/17 15:40 93/57 8/18/17 15:38 83 20 93/40 97 8/18/17 15:38 84 20 8/18/17 15:38 83 20 93/40 97 8/18/17 15:38 84 20 8/18/17 15:35 91/54 8/18/17 15:35 91/54 8/18/17 15:33 84 19 93/40 97 8/18/17 15:33 85 19 8/18/17 15:33 85 19 8/18/17 15:33 84 19 93/40 97 8/18/17 15:30 94/53 8/18/17 15:30 94/53 8/18/17 15:28 85 20 92/38 98 8/18/17 15:28 79 20 8/18/17 15:28 85 20 92/38 98 8/18/17 15:28 79 20 8/18/17 15:25 89/55 8/18/17 15:25 89/55 8/18/17 15:23 85 20 8/18/17 15:23 85 20 92/39 99 8/18/17 15:23 85 20 92/39 99 8/18/17 15:23 85 20 8/18/17 15:20 96/58 8/18/17 15:20 96/58 8/18/17 15:18 83 20 94/40 97 8/18/17 15:18 83 20 8/18/17 15:18 83 20 8/18/17 15:18 83 20 94/40 97 8/18/17 15:15 97/54 8/18/17 15:15 97/54 8/18/17 15:13 82 20 8/18/17 15:13 83 20 94/40 100 8/18/17 15:13 82 20 8/18/17 15:13 83 20 94/40 100 8/18/17 15:10 94/53 8/18/17 15:10 94/53 8/18/17 15:08 83 22 8/18/17 15:08 83 22 89/39 97 8/18/17 15:08 83 22 89/39 97 8/18/17 15:08 83 22 8/18/17 15:05 95/55 8/18/17 15:05 95/55 8/18/17 15:03 82 20 93/40 99 8/18/17 15:03 82 20 93/40 99 8/18/17 15:03 82 20 8/18/17 15:03 82 20 8/18/17 15:00 108/59 8/18/17 15:00 108/59 8/18/17 14:59 36.2 82 16 86/55 96 Mask 15 8/18/17 14:58 84 19 11/07/16 14:58 84 19 11/07/16 14:58 84 19 119/49 97 11/07/16 14:58 84 19 119/49 97 11/07/16 14:55 123/84 11/07/16 14:55 123/84 11/07/16 14:53 82 22 86/38 97 11/07/16 14:53 83 22 11/07/16 14:53 82 22 86/38 97 11/07/16 14:53 83 22 11/07/16 14:50 101/55 11/07/16 14:50 101/55 11/07/16 14:48 83 22 11/07/16 14:48 82 22 86/55 98 Laboratory Results: Last 24 Hours Test 11/07/16 14:51 11/07/16 16:51 11/07/16 17:32 11/07/16 18:06 Bedside Glucose 300 mg/dl 283 mg/dl White Blood Count 13.97 K/uL Red Blood Count 4.41 M/uL Hemoglobin 12.7 g/dL Hematocrit 38.5 % Mean Corpuscular Volume 87.3 fL Mean Corpuscular Hemoglobin 28.8 pg Mean Corpuscular Hemoglobin Concent 33.0 g/dl RDW Standard Deviation 46.4 fL RDW Coefficient of Variation 14.6 % Platelet Count 133 K/uL Mean Platelet Volume 8.8 fL Calcium Level 8.9 mg/dl 8.7 mg/dl Magnesium Level 1.7 mg/dl Sodium Level 135 mmol/L Potassium Level 4.3 mmol/L Chloride Level 101 mmol/L Carbon Dioxide Level 24 mmol/L Anion Gap 10.0 mmol/L Blood Urea Nitrogen 16 mg/dl Creatinine 0.90 mg/dl Est Creatinine Clear Calc Drug Dose 93.7 ml/min Estimated GFR () 97.2 Estimated GFR (Non- 83.8 BUN/Creatinine Ratio 18.2 Random Glucose 274 mg/dl Test 11/07/16 20:09 11/07/16 21:32 11/07/16 22:38 11/07/16 23:50 Bedside Glucose 216 mg/dl 202 mg/dl 248 mg/dl 236 mg/dl Test 11/08/16 00:52 11/08/16 01:53 11/08/16 02:54 11/08/16 03:54 Bedside Glucose 207 mg/dl 186 mg/dl 177 mg/dl 167 mg/dl Test 11/08/16 04:55 11/08/16 05:39 11/08/16 06:00 11/08/16 07:20 Bedside Glucose 138 mg/dl 134 mg/dl 156 mg/dl White Blood Count 10.95 K/uL Red Blood Count 4.19 M/uL Hemoglobin 12.1 g/dL Hematocrit 35.7 % Mean Corpuscular Volume 85.2 fL Mean Corpuscular Hemoglobin 28.9 pg Mean Corpuscular Hemoglobin Concent 33.9 g/dl RDW Standard Deviation 46.4 fL RDW Coefficient of Variation 14.8 % Platelet Count 131 K/uL Mean Platelet Volume 9.0 fL Sodium Level 133 mmol/L Potassium Level 3.9 mmol/L Chloride Level 101 mmol/L Carbon Dioxide Level 27 mmol/L Anion Gap 5.0 mmol/L Blood Urea Nitrogen 13 mg/dl Creatinine 0.74 mg/dl Est Creatinine Clear Calc Drug Dose 113.9 ml/min Estimated GFR () 105.3 Estimated GFR (Non- 90.9 BUN/Creatinine Ratio 17.7 Random Glucose 137 mg/dl Estimated Average Glucose 229 mg/dl Hemoglobin A1c 9.6 % Calcium Level 8.5 mg/dl Phosphorus Level 2.3 mg/dl Magnesium Level 1.8 mg/dl Test 11/08/16 10:01 11/08/16 11:00 11/08/16 12:00 Bedside Glucose 262 mg/dl 255 mg/dl 202 mg/dl Resident Tracking Resident Involvement: Resident Care Provided Care Provided: Adult Hospital Medicine
[2016-11-08] MEDS ORDERED: METOCLOPRAMIDE HCL INJ 10 MG in SYRINGE 0 ML IV SCH (13:00)
[2016-11-08] MEDS ORDERED: NURSING VERBAL MED ORDER ONE (13:15)
[2016-11-08] MEDS ORDERED: METOCLOPRAMIDE HCL INJ 5 MG/ML 2 ML VIAL IV SCH (14:00)
--- NOTE | 2016-11-08 14:03 | DIAGNOSTIC IMAGING REPORT ---
CHEST 2 VIEWS ROUTINE CLINICAL HISTORY: Emesis. Evaluate for aspiration. COMPARISON STUDY: Chest radiograph November 08, 2016 6:51 AM. FINDINGS: A left chest tube remains in place. A small left apical pneumothorax is unchanged. Subcutaneous gas within the left lower neck is noted. A small left pleural effusion is present. There are median sternotomy wires and clips from bypass grafting. Cardiomegaly is noted without evidence for pulmonary edema. Bibasilar opacities persist. IMPRESSION: 1. No significant change in a small left pneumothorax. Left chest tube in place. Small left pleural effusion. 2. No significant change in bibasilar opacities. This could reflect atelectasis or consolidation. Electronically signed by: Dewey Aiken M.D. 11/08/2016 2:01 PM Dictated Date/Time: 11/08/2016 1:58 PM
--- NOTE | 2016-11-08 14:54 | Pharmacy Progress Note ---
Glycemic Control Progress Note Date of Service Nov 08, 2016. Scope Glycemic Pharmacist consulted for glycemic control to write orders per [facility] inpatient glycemic control protocol. Objective Accuchecks BSG (last 24hrs): Test 11/07/16 14:51 11/07/16 17:32 11/07/16 18:06 11/07/16 20:09 Bedside Glucose 300 mg/dl (70-99) 283 mg/dl (70-99) 216 mg/dl (70-99) Random Glucose 274 mg/dl (70-99) Test 11/07/16 21:32 11/07/16 22:38 11/07/16 23:50 11/08/16 00:52 Bedside Glucose 202 mg/dl (70-99) 248 mg/dl (70-99) 236 mg/dl (70-99) 207 mg/dl (70-99) Test 11/08/16 01:53 11/08/16 02:54 11/08/16 03:54 11/08/16 04:55 Bedside Glucose 186 mg/dl (70-99) 177 mg/dl (70-99) 167 mg/dl (70-99) 138 mg/dl (70-99) Test 11/08/16 05:39 11/08/16 06:00 11/08/16 07:20 11/08/16 10:01 Random Glucose 137 mg/dl (70-99) Bedside Glucose 134 mg/dl (70-99) 156 mg/dl (70-99) 262 mg/dl (70-99) Test 11/08/16 11:00 11/08/16 12:00 Bedside Glucose 255 mg/dl (70-99) 202 mg/dl (70-99) HbA1c: Test 11/08/16 05:39 Hemoglobin A1c 9.6 % (4.5-5.6) H Recent Pertinent Medications The patient is currently receiving: * Insulin infusion with rates ranging 5.8 units/hr Outpatient Anti-Diabetic Meds Novolog 70/30 - 35 units qAM and 25 units qPM Assessment & Plan ASSESSMENT: * See progress note from 11/07/16 for more background info, in short: * Pt receiving SQ basal bolus insulin regimen for hyperglycemia secondary to baseline DM (outpatient regimen on hold),stress from thoracoscopy/pleurectomy POD 1, and type 2 diabetic diet * Patient is currently receiving an average of ??? units of insulin per day * - units of basal insulin * - units of prandial/correctional insulin * BSGs ranging 134 - 300 mg/dl over the past 24hrs * Insulin infusion continued at 5.6 units/day during the past 12 hours however , rate has increased to 8.8 units and above recently * Changes needed to insulin regimen: * AM Fasting BSG = 134 mg/dl. This is in goal range for patient based on inpatient targets and co-morbidities. This morning, orders were received to titrate patient to basal-bolus insulin. At that time, insulin infusion rate was ~5.8 units/hour. A dose of Lantus 50 units (weight based stress of 3 dosing x 2) . There was a 6 hour overlap. Unfortunately close to the end of that 6 hour overlap, the insulin infusion rate was higher at 8.8 units/hr. Decision was made to continue insulin with Lantus overlap. Lantus 20 units BID started in anticipation of drip ending tomorrow. * Post-prandial BSGs are in range therefore no changes needed. * Total daily dose is currently unknown. May determine range once insulin infusion ended. PLAN FOR INPATIENT GLYCEMIC CONTROL: * STARTING Lantus 20 units SQ BID * Continuing no correction factor (mg/dl/unit) * Continuing no carb ratio (1 unit per [] grams CHO consumed) * Continuing goal range to Low 110 mg/dL - High 140 mg/dL RECOMMENDATIONS FOR DISCHARGE: * More information will be determined based upon patient's insulin requirements here in hospital. However, with an A1C of 9.6%, the patient will most likely require insulin as an outpatient. Thank you.
[2016-11-08] MEDS ORDERED: DC IV INSULIN INFUSION ONE (15:00)
[2016-11-08] MEDS: INSULIN ASPART 100 UNITS/ML 3 ML PEN SC SCH ×3 (18:25→21:00)
--- NOTE | 2016-11-08 18:42 | Medical Consult ---
History General Date of Service: Nov 08, 2016. Stated Complaint: Left Pleural Effusion, Diabetes Type 2 HPI The patient is a 76 year old male who presents to [facility] with complaints of Left Pleural Effusion, Diabetes Type 2. The patient's primary care provider is Handy Vyas D.O.. This patient was seen in his room after transfer out of the intensive care unit is status post VATS procedure with decortication on November 07 he has a left chest tube in place with minimal pneumothorax he still has some bloody drainage via the chest is pain control is acceptable is eating dinner he is an insulin drip for diabetic control with pharmacy [place] [facility] consult transitioning him to basal bolus insulin. He typically takes insulin 7030 at home. The origin of his recurrent pleural effusion was subsequent to a bovine aortic valve replacement 3 years ago he currently has no chest pain or pressure other than pain at the chest tube site is also short of breath but does not exert himself Review of Systems ROS: well nourished well developed No double vision blurry vision No problems with speech or swallowing No palpitations, or pressure, chest pain is at the chest tube site No Wheezing or breathing issues but does have some pleuritic discomfort on deep breath No abdominal pain nausea vomiting diarrhea changes in appetite or weight No burning urine urine frequency or changes in color No focal joint pain or muscle pain No skin rashes or oral lesions No unusual bruising or bleeding No focused back pain or numbness or loss of strength No changes in memory or confusion Past Medical History Past Medical History: coronary artery disease, depression, other (Valve replacement) Past Surgical History: cardiac catheterization, cholecystectomy, coronary bypass surgery Family History Parent: Diabetes, Grandparent: COPD Social History Hx Tobacco Use In Past Year?: Yes (pt states he stopped crispin. 20 years ago) Smoking Status: Former Smoker Marital status: Occupational Status: retired Allergies Coded Allergies: No Known Allergies (Unverified , 11/07/16) Current Medications Reported Home Medications Medications Dose Route/Sig Max Daily Dose Days Date Category Dose Instructions Ampicillin 500 Mg Cap 2,000 Mg PO UD PRN 10/10/16 Reported WITH DENTAL WORK Tylenol (Acetaminophen) 325 Mg Tab 650 Mg PO TID PRN 10/10/16 Reported Vitamin D 77702 Unit (Ergocalciferol) 50,000 Unit Cap 1 Tab PO WK 10/10/16 Reported THURSDAY AM Trazodone (Trazodone HCl) 50 Mg Tab 25 Mg PO HS 10/10/16 Reported Zoloft (Sertraline HCl) 100 Mg Tab 100 Mg PO QPM 10/10/16 Reported Crestor (Rosuvastatin Calcium) 10 Mg Tab 10 Mg PO QAM 10/10/16 Reported Rhinocort Allergy (Budesonide (Nasal)) 32 Mcg/Act Keila 1 [place] ISHA QPM 10/10/16 Reported Seroquel (Quetiapine Fumarate) 50 Mg Tab 50 Mg PO QPM 10/10/16 Reported Novolog Mix 70/30 (Insulin Aspart Protamine & Asp) 1 Inj Inj 25 Units SC QPM 10/10/16 Reported Novolog Mix 70/30 (Insulin Aspart Prota 70%/Aspart 30%) Susp 35 Units SC QAM 10/10/16 Reported Lopressor (Metoprolol Tartrate) 25 Mg Tab 25 Mg PO BID 10/10/16 Reported Claritin (Loratadine) 10 Mg Tab 10 Mg PO QAM 10/10/16 Reported Zestril (Lisinopril) 5 Mg Tab 2.5 Mg PO QAM 10/10/16 Reported Multivitamin (Multivitamins) Tab 1 Tab PO QAM 10/10/16 Reported Aspirin Ec (Aspirin) 81 Mg Tab 81 Mg PO QAM 10/10/16 Reported Anti-Diarrheal (Loperamide Hcl) 2 Mg Cap 2 Mg PO QAM 10/10/16 Reported Physical Physical Exam Vital Signs: Date Time Temp Pulse Resp B/P (MAP) Pulse Ox O2 Delivery O2 Flow Rate FiO2 11/08/16 14:54 36.3 96 20 100/63 (75) 96 Nasal Cannula 2.0 11/08/16 10:00 36.9 103 20 94 2.0 11/08/16 10:00 36.7 98 20 102/58 (73) 93 Nasal Cannula 2.0 11/08/16 09:00 103 20 93/56 (68) 94 Nasal Cannula 2.0 11/08/16 08:00 94 Nasal Cannula 2.0 11/08/16 08:00 36.9 104 20 109/64 (79) 94 Nasal Cannula 2.0 11/08/16 06:00 90 105/61 (76) 95 Nasal Cannula 2.0 11/08/16 05:00 94 94/60 (71) Nasal Cannula 2.0 11/08/16 04:17 97 Nasal Cannula 2.0 11/08/16 04:00 94 108/62 (77) 95 Nasal Cannula 2.0 11/08/16 03:00 96 99/62 (74) 11/08/16 02:00 96 104/64 (77) 11/08/16 01:00 37.1 96 98/63 (75) 96 11/08/16 00:06 97 Nasal Cannula 2.0 11/08/16 00:00 37.1 99 95/58 (70) 96 11/07/16 23:30 100 90/58 (69) 11/07/16 23:15 101 94/61 (72) 94 11/07/16 23:00 100 95/61 (72) 11/07/16 22:45 99 91/58 (69) 96 11/07/16 22:30 97 98/62 (74) 11/07/16 22:15 86 106/67 (80) 96 11/07/16 22:00 98 101/65 (77) 11/07/16 21:45 98 103/64 (77) 11/07/16 21:31 100 105/46 (65) 91 11/07/16 21:15 92 120/77 (91) 96 11/07/16 21:00 90 115/75 (88) 97 11/07/16 20:45 92 120/75 (90) 11/07/16 20:30 90 113/67 (82) 98 11/07/16 20:15 92 114/75 (88) 94 11/07/16 20:08 97 Nasal Cannula 2.0 11/07/16 20:00 90 95/57 (70) 11/07/16 19:45 89 86/58 (67) 96 11/07/16 19:30 89 107/67 (80) 11/07/16 19:15 91 90/60 (70) 11/07/16 19:00 92 96/57 (70) General Appearance: WELL-APPEARING, uncomfortable, in pain, mild distress Head: NORMOCEPHALIC, ATRAUMATIC Eyes: PERRLA, EOMI Neck: TRACHEA MIDLINE, SUPPLE Respiratory: NO RESPIRATORY DISTRESS, other (some minor rhonchi that clear the left base) Cardiovasular: REGULAR RATE/RHYTHM, systolic murmur Abdomen: NON TENDER, NORMAL BOWEL SOUNDS, NO REBOUND Upper Extremities: NO EDEMA Lower Extremities: NO EDEMA Neuro: ALERT, ORIENTED x 3 Psychiatric: NORMAL AFFECT Diagnostics Labs Results Past 24 Hours Test 11/07/16 20:09 11/07/16 21:32 11/07/16 22:38 11/07/16 23:50 Range/Units Bedside Glucose 216 202 248 236 70-99 mg/dl Test 11/08/16 00:52 11/08/16 01:53 11/08/16 02:54 11/08/16 03:54 Range/Units Bedside Glucose 207 186 177 167 70-99 mg/dl Test 11/08/16 04:55 11/08/16 05:39 11/08/16 06:00 11/08/16 07:20 Range/Units Bedside Glucose 138 134 156 70-99 mg/dl White Blood Count 10.95 4.8-10.8 K/uL Red Blood Count 4.19 4.7-6.1 M/uL Hemoglobin 12.1 14.0-18.0 g/dL Hematocrit 35.7 42-52 % Mean Corpuscular Volume 85.2 80-100 fL Mean Corpuscular Hemoglobin 28.9 25-34 pg Mean Corpuscular Hemoglobin Concent 33.9 32-36 g/dl RDW Standard Deviation 46.4 36.4-46.3 fL RDW Coefficient of Variation 14.8 11.5-14.5 % Platelet Count 131 130-400 K/uL Mean Platelet Volume 9.0 7.4-10.4 fL Sodium Level 133 136-145 mmol/L Potassium Level 3.9 3.5-5.1 mmol/L Chloride Level 101 98-107 mmol/L Carbon Dioxide Level 27 21-32 mmol/L Anion Gap 5.0 3-11 mmol/L Blood Urea Nitrogen 13 7-18 mg/dl Creatinine 0.74 0.60-1.40 mg/dl Est Creatinine Clear Calc Drug Dose 113.9 ml/min Estimated GFR () 105.3 Estimated GFR (Non- 90.9 BUN/Creatinine Ratio 17.7 10-20 Random Glucose 137 70-99 mg/dl Estimated Average Glucose 229 mg/dl Hemoglobin A1c 9.6 4.5-5.6 % Calcium Level 8.5 8.5-10.1 mg/dl Phosphorus Level 2.3 2.5-4.9 mg/dl Magnesium Level 1.8 1.8-2.4 mg/dl Test 11/08/16 10:01 11/08/16 11:00 11/08/16 12:00 11/08/16 12:59 Range/Units Bedside Glucose 262 255 202 179 70-99 mg/dl Test 11/08/16 14:07 11/08/16 14:58 11/08/16 17:02 Range/Units Bedside Glucose 174 170 124 70-99 mg/dl Diagnostic Radiology Laboratories reviewed stable hemoglobin white count renal function Radiology Interpretation: other (resolving left pneumothorax chest tube in place) Impression Assessment and Plan 76-year-old male status post left VATS procedure with decortication Dr. Bowers is a primary attending and is managing the chest tube and pain control For his diabetes glycemic management pharmacy and I discussed the fact that we' ll continue the drip but institute Lantus therapy in hopes of reducing the drip and returning to basal bolus coverage Acute coronary disease and CABG the patient is maintained on metoprolol aspirin and lisinopril as well as Crestor for secondary prevention History of depression the patient is maintained on Zoloft Seroquel and trazodone. The patient wasn't scheduled metoclopramide, given his age I felt this should be at least moved to when necessary he did have some nausea with lunch Thank you for this consultation
[2016-11-08] MEDS ORDERED: INSULIN GLARGINE SOLOSTAR 100 UNITS/ML 3 ML PEN SC SCH (21:00)
[2016-11-08] MEDS: BUDESONIDE AQ (RHINOCORT AQ) NASAL SPRAY 32 MCG NAE SCH (21:14)
[2016-11-08] MEDS: QUETIAPINE FUMARATE 25 MG TAB PO SCH (21:15)
[2016-11-08] MEDS: SERTRALINE HCL 100 MG TAB PO SCH (21:16)
[2016-11-08] MEDS: TRAZODONE HCL 50 MG TAB PO SCH (21:17)
[2016-11-08] MEDS: INSULIN GLARGINE SOLOSTAR 100 UNITS/ML 3 ML PEN SC SCH (21:20)
[2016-11-08] MEDS ORDERED: METOCLOPRAMIDE HCL INJ 5 MG/ML 2 ML VIAL IV. PRN (22:00)
[2016-11-09] VITALS (7 sets, daily range): BP systolic 100–108; BP diastolic 67–68; PULSE 79–103; TEMP 36.4–36.9; O2SAT 90–96
[2016-11-09] MEDS ORDERED: INSULIN ASPART 100 UNITS/ML 3 ML PEN SC SCH
[2016-11-09] MEDS: DEXTROSE 50% 50 ML SYR IV PRN ×2 (00:31→00:37)
[2016-11-09] MEDS: INSULIN REGULAR 250 UNITS in SODIUM CHLORIDE 0.9% 250ML 250 ML IV SCH ×9 (00:53→14:20)
[2016-11-09] MEDS ORDERED: SODIUM CHLORIDE 0.9% 500ML 500 ML IV STA (01:11)
--- NOTE | 2016-11-09 07:52 | DIAGNOSTIC IMAGING REPORT ---
SINGLE VIEW CHEST CLINICAL HISTORY: Status post VATS. FINDINGS: An AP, portable, upright chest radiograph is compared to study dated 11/08/2016 and correlated with chest CT dated 09/22/2016. The examination is degraded by portable technique and patient rotation. The patient is status post midline sternotomy. The heart is enlarged and there is atherosclerotic calcification of the thoracic aorta. The pulmonary vasculature is noncongested. A left apical chest tube is unchanged in position. A small left apical pneumothorax is unchanged. Pleural fluid and opacities are again seen at the left lung base. The right lung is grossly clear. No right-sided pneumothorax is seen. The skeletal structures are osteopenic. Advanced arthritic change is seen in the shoulders. Subcutaneous emphysema is noted in the left lower neck. IMPRESSION: 1. A left apical chest tube is unchanged in position and a trace left apical pneumothorax persists. 2. Pleural fluid and basilar opacities are again noted at the left lung base. This is unchanged from yesterday. 3. The right lung is grossly clear. 4. Cardiomegaly without radiographic evidence of congestive failure. Electronically signed by: Chiki Peters M.D. 11/09/2016 7:50 AM Dictated Date/Time: 11/09/2016 7:48 AM
[2016-11-09 08:13] LABS: BASO % 0.1 %; BASO ABS # 0.02 K/uL (0-0.2); COMPLETE YES; EOS % 1.3 %; IG% 0.3 %; LYMPH % 10.1 %; LYMPH ABS # 1.39 K/uL (1.2-3.4); MEAN CORPUSCULAR HEMOGLOBIN 28.3 pg (25-34); MEAN CORPUSCULAR HGB CONC 32.5 g/dl (32-36); MEAN PLATELET VOLUME 8.6 fL (7.4-10.4); MONO % 5.5 %; NEUT % 82.7 %; PLATELET COUNT 140 K/uL (130-400); RED BLOOD COUNT 4.14 M/uL (4.7-6.1); WHITE BLOOD COUNT 13.75 K/uL (4.8-10.8)
[2016-11-09 08:46] LABS: CALCIUM 8.8 mg/dl (8.5-10.1); CREATININE 0.73 mg/dl (0.60-1.40); MAGNESIUM 1.8 mg/dl (1.8-2.4); POTASSIUM 3.6 mmol/L (3.5-5.1)
[2016-11-09] MEDS: ASPIRIN 81 MG ECTAB PO SCH (09:29)
[2016-11-09] MEDS: LOPERAMIDE HCL 2 MG CAP PO SCH (09:30)
[2016-11-09] MEDS: METOPROLOL TARTRATE 25 MG TAB PO SCH ×2 (09:30→20:35)
[2016-11-09] MEDS: ROSUVASTATIN CALCIUM 10 MG TAB PO SCH (09:30)
[2016-11-09] MEDS: LISINOPRIL 2.5 MG TAB PO SCH (09:31)
[2016-11-09] MEDS: LORATADINE 10 MG TAB PO SCH (09:31)
[2016-11-09] MEDS: MULTIVITAMIN TAB PO SCH (09:32)
[2016-11-09] MEDS: INSULIN GLARGINE SOLOSTAR 100 UNITS/ML 3 ML PEN SC SCH ×2 (09:35→20:28)
[2016-11-09] MEDS: INSULIN ASPART 100 UNITS/ML 3 ML PEN SC SCH ×4 (09:39→20:30)
[2016-11-09] MEDS ORDERED: INSULIN GLARGINE SOLOSTAR 100 UNITS/ML 3 ML PEN SC ONE (10:00)
--- NOTE | 2016-11-09 10:07 | SURGERY PROGRESS NOTE ---
DATE: 11/09/2016 SUBJECTIVE: Mr. Wlid was seen today. On room air this morning, he has 92% saturations. He drained only 20 mL of fluid through his chest tube and it is serous. He has no air leak. I have removed his chest tubes this morning. His sites are clean. The patient does not want to move. This was quite a problem. We are going to really have to get him up moving today. He is up to the chair to eat. We will get him ambulating today. His white count is 13,750 with a hemoglobin 11.7. His BUN and creatinine are 15 and 0.73 respectively. His sodium is down a bit 134. Carbon dioxide is 29. Blood pressure is a bit better today. He has some decreased breath sounds on the left base, but I think it looks better. His x-ray this morning I thought also showed postoperative changes as expected. He did vomit yesterday. The nurses are bit concerned about aspiration; however, he does not sound like that today. He is really not producing sputum. He did cough up some bloody material, but it sounds more like it is collecting back of his throat. He does not have any wheezing on exam. He is currently off oxygen. ASSESSMENT AND PLAN: Postoperative day #2, status post extensive pleurectomy with chronic left pleural effusion and extensive decortication. He looks a bit better, but he really needs to move. If he stays stable, I will send him out tomorrow. MAHOGANY
--- NOTE | 2016-11-09 10:40 | Hospitalist Progress Note ---
Hospitalist Progress Note Date of Service Nov 09, 2016. (Amarilis Huffman ., NOBLE-C) Subjective Pt evaluation today including: conversation w/ patient, physical exam, chart review, lab review, review of studies, review of inpatient medication list Pain: None PO Intake: Tolerating PO diet Voiding: no voiding problems Patient admits to an intermittent productive cough but otherwise denies any physical complaints today, just states that he would like to get out of here soon. He denies any pain at the site of the chest tube or any difficulty breathing. The patient denies fevers, chills, sweats, chest pain, palpitations , claudication, wheezing, shortness of breath, nausea, vomiting, abdominal pain , dysuria, hematuria, urinary retention, paralysis, weakness, numbness and tingling. Additional Comments: See HPI for pertinent positives and negatives. All other systems reviewed and negative. (Amarilis Huffman, NOBLE-C) Objective Vital Signs Date Time Temp Pulse Resp B/P (MAP) Pulse Ox O2 Delivery O2 Flow Rate FiO2 11/09/16 07:50 92 Room Air 11/09/16 07:47 36.8 90 22 108/67 (81) 95 Nasal Cannula 2.0 11/08/16 23:09 91 Nasal Cannula 2.0 11/08/16 23:05 37.0 100 18 119/73 (88) 89 Room Air 11/08/16 21:12 108 124/68 (86) 11/08/16 18:45 97 Room Air 11/08/16 14:54 36.3 96 20 100/63 (75) 96 Nasal Cannula 2.0 (Amarilis Huffman ., NOBLE-C) Physical Exam Notes: General appearance: +Obese. Well-developed, well-nourished, no apparent distress Head: Normocephalic, atraumatic Eyes: Normal inspection, PERRL, EOMI ENT: Normal ENT inspection, hearing grossly normal, pharynx normal Neck: Supple, no JVD, trachea midline Respiratory/Chest: +Decreased breath sounds throughout. Crackles in bases bilaterally. Normal breath sounds, no respiratory distress Cardiovascular: +Systolic murmur. Regular rate & rhythm, no gallop, no murmur Abdomen/GI: Normal bowel sounds, non-tender, soft Extremities/Musculoskeletal: +Trace pitting edema. Normal inspection, no calf tenderness Neurological/Psych: Alert, normal mood/affect, oriented x 3 Skin: Normal color, warm/dry, no rash (Amarilis Huffman, YULISSA) Laboratory Results Last 24 Hours Test 11/08/16 11:00 11/08/16 12:00 11/08/16 12:59 11/08/16 14:07 Bedside Glucose 255 mg/dl 202 mg/dl 179 mg/dl 174 mg/dl Test 11/08/16 14:58 11/08/16 17:02 11/08/16 19:09 11/08/16 19:56 Bedside Glucose 170 mg/dl 124 mg/dl 215 mg/dl 234 mg/dl Test 11/08/16 20:57 11/08/16 22:10 11/09/16 00:06 11/09/16 00:47 Bedside Glucose 154 mg/dl 154 mg/dl 71 mg/dl 178 mg/dl Test 11/09/16 02:03 11/09/16 03:07 11/09/16 03:59 11/09/16 06:03 Bedside Glucose 100 mg/dl 121 mg/dl 145 mg/dl 118 mg/dl Test 11/09/16 06:54 11/09/16 07:51 11/09/16 08:00 Bedside Glucose 113 mg/dl 91 mg/dl White Blood Count 13.75 K/uL Red Blood Count 4.14 M/uL Hemoglobin 11.7 g/dL Hematocrit 36.0 % Mean Corpuscular Volume 87.0 fL Mean Corpuscular Hemoglobin 28.3 pg Mean Corpuscular Hemoglobin Concent 32.5 g/dl Platelet Count 140 K/uL Mean Platelet Volume 8.6 fL Neutrophils (%) (Auto) 82.7 % Lymphocytes (%) (Auto) 10.1 % Monocytes (%) (Auto) 5.5 % Eosinophils (%) (Auto) 1.3 % Basophils (%) (Auto) 0.1 % Neutrophils # (Auto) 11.36 K/uL Lymphocytes # (Auto) 1.39 K/uL Monocytes # (Auto) 0.76 K/uL Eosinophils # (Auto) 0.18 K/uL Basophils # (Auto) 0.02 K/uL RDW Standard Deviation 47.5 fL RDW Coefficient of Variation 14.9 % Immature Granulocyte % (Auto) 0.3 % Immature Granulocyte # (Auto) 0.04 K/uL Sodium Level 134 mmol/L Potassium Level 3.6 mmol/L Chloride Level 101 mmol/L Carbon Dioxide Level 29 mmol/L Anion Gap 4.0 mmol/L Blood Urea Nitrogen 15 mg/dl Creatinine 0.73 mg/dl Est Creatinine Clear Calc Drug Dose 115.8 ml/min Estimated GFR () 105.9 Estimated GFR (Non- 91.4 BUN/Creatinine Ratio 20.0 Random Glucose 91 mg/dl Calcium Level 8.8 mg/dl Magnesium Level 1.8 mg/dl (Amarilis Huffman, YULISSA) Diagnostic Results Reviewed the following studies and agree with interpretation as follows: Patient Name: TITI GAUTHIER Unit Number: [id number] Dictated: 11/09/16747 Transcribed: 11/09/16747 EV Printed Date/Time: [~ rep prt dt]/[~ rep prt tm] [~ rep ct labl] - [~ rep ct ivnm] [facility] Radiology Department [place] [id number] Dictated: 11/09/16747 Transcribed: 11/09/16747 EV Printed Date/Time: [~ rep prt dt]/[~ rep prt tm] [~ rep ct labl] - [~ rep ct ivnm] Patient: TITI GAUTHIER Address1: [address] [facility] Rec: [id number] Address2: [address] [place] Acct ID: [id number] [facility] Zip: [place] [address] Date: 1940 Sex: M Room/Bed: [facility] Ref Phy: Handy Vyas D.O. SC: ROSA Att Phy: Humphrey Marie MD Report #: [id number] Angelina Phy: Handy Vyas D.O. Test: CXR1P Admit Phy: Humphrey Marie MD Android Platform Developer: EDSON Interpreting Phy: Chiki Peters M.D. Diagnosis: LEFT PLEURAL EFFUSION, DIABETES TYPE 2 Ordering Phy: Humphrey Marie MD Service Date: 11/09/16 Admit Date: 11/08/1707/18/17 MNE: CAMILARSCRIBE CONF: DICTATED BY: Chiki Peters M.D.]] CC: Handy Vyas D.O. Humphrey Marie MD Endcc: [~ rep ct add3]] SINGLE VIEW CHEST CLINICAL HISTORY: Status post VATS. FINDINGS: An AP, portable, upright chest radiograph is compared to study dated 11/08/2016 and correlated with chest CT dated 09/22/2016. The examination is degraded by portable technique and patient rotation. The patient is status post midline sternotomy. The heart is enlarged and there is atherosclerotic calcification of the thoracic aorta. The pulmonary vasculature is noncongested. A left apical chest tube is unchanged in position. A small left apical pneumothorax is unchanged. Pleural fluid and opacities are again seen at the left lung base. The right lung is grossly clear. No right-sided pneumothorax is seen. The skeletal structures are osteopenic. Advanced arthritic change is seen in the shoulders. Subcutaneous emphysema is noted in the left lower neck. IMPRESSION: 1. A left apical chest tube is unchanged in position and a trace left apical pneumothorax persists. 2. Pleural fluid and basilar opacities are again noted at the left lung base. This is unchanged from yesterday. 3. The right lung is grossly clear. 4. Cardiomegaly without radiographic evidence of congestive failure. Electronically signed by: Chiki Peters M.D. 11/09/2016 7:50 AM Dictated Date/Time: 11/09/2016 7:48 AM The status of this report is Signed. Draft = Not yet reviewed or approved by Radiologist. Signed = Reviewed and approved by Radiologist. <AttendingPhy>Humphrey Marie MD</AttendingPhy> <FamilyPhy>Handy Vyas D.O.</FamilyPhy> <PrimaryPhy>Handy Vyas D.O.</PrimaryPhy> <UnitNumber> [id number]</UnitNumber> <VisitNumber>[id number]</VisitNumber> <PatientName> TITI GAUTHIER</PatientName> <DateOfBirth>1940</DateOfBirth> <Location>W </Location> <ServiceDate>11/07/16</ServiceDate> <MNE>ESINDI</MNE> <OrderingPhy> Humphrey Marie MD</OrderingPhy> <OrderingPhyMNE>f rep ord dr berg</ OrderingPhyMNE> <DictatingPhyMNE>f rep dict dr berg</DictatingPhyMNE> <CCListMNE> f rep ct dietere</CCListMNE> <AdmittingPhyMNE>f pt admit dr berg</AdmittingPhyMNE> < AttendingPhyMNE>f pt attend dr berg</AttendingPhyMNE> <ConsultingPhyMNE>f pt consult dr berg</ConsultingPhyMNE> <FamilyPhyMNE>f pt fam dr berg</FamilyPhyMNE> <OtherPhyMNE>f pt other dr berg</OtherPhyMNE> < PrimaryPhyMNE>f pt prim care dr berg</PrimaryPhyMNE> <ReferringPhyMNE>f pt referring dr berg</ReferringPhyMNE> (mAarilis Huffman ., PACbC) Assessment and Plan 76 y/o male with a history of CAD s/p CABG, HTN, HLD, DM II, and depression who presents s/p VATS w/decortication on 11/[address] Marie for medical management. S/p VATS procedure--stable. POD #2 -Transferred to med/surg from ICU on 11/08 -Pain management, chest tube management, DVT prophylaxis, and PT/OT as per primary team -Leukocytosis worsening. WBC up to 13.75 on 11/09 from 10.95. Pt is afebrile, continue to monitor CAD s/p CABG, HTN, HLD--stable -Continue ASA 81 mg PO qd, lisinopril 2.5 mg PO qd, Lopressor 25 mg PO BID, and Crestor 10 mg PO qhs DM II -HgbA1c 9.6 on 11/08 -Pharmacy consulted for glycemic control -Lantus 30 units SC q12h -Insulin sliding scale -Insulin drip titrating down, likely will be stopped this afternoon -Check BSGs q ac and qhs Depression -Continue Zoloft 100 mg PO qhs and Seroquel 50 mg PO qhs Code Status -Level I, FULL RESUSCITATION STATUS Thank you for this consultation. We will continue to follow. (Amarilis Huffman ., YULISSA) Reviewed: Pt Seen/Exam by Me (Alisia Billy MD) History Physician Estate Planning Paralegal Supervision Note: I interviewed and examined the patient. Discussed with NOBLE Huffman and agree with findings and plan as documented in the note. Any exceptions or clarifications are listed here: Pt and I had a 45 min conversation today about his life, mostly relating to what seems to be a tremendous amount of guilt since his committed suicide in 1977. He states that he is "FUBAR-ed," and that no one can help him. He is not suicidal, says that he has just resolved himself to the fact that God will never forgive him for an adulterous relationship he feels led to his 's , and that he "will never see [place]." He declines any Psychiatric consultation at this time. Otherwise, he says he has bad dreams that haunt him even after he wakes up. No significant pain, is eating, is moving his bowels but can't remember when. Not SOB, no CP. Vital sreviewed NAD, flat affect even with telling me jokes RRR +2/6 MOISES at RUSB Decreased BS at left base but otherwise CTAB Abd soft NT ND +BS Ext trace pitting edema 76 yo male with h/o AVR, DMII, and chronic major depressive disorder, here s/p left VATS w/ decortication. -post-op doing well -off insulin gtt now with slight rebound of insulin-Pharmacy is apparently managing so I will not make changes in the regimen at this time as I expect they will correct for this -Depression-no current indication for inpatient Psych, but could definitely benefit from seeing a counselor as an outpatient and perhaps titrate up on his meds -He states he has not seen his PCP since last year--> will need PCP follow up after discharge Documented By: Alisia Billy (Alisia Billy MD)
[2016-11-09] MEDS ORDERED: NURSING VERBAL MED ORDER ONE (11:00)
[2016-11-09] MEDS ORDERED: OXYCODONE/ACETAMINOPHEN 5-325 TAB PO ONE (11:00)
[2016-11-09] MEDS ORDERED: [UNRECOGNIZED DRUG - REMARK] ONE (15:00)
--- NOTE | 2016-11-09 15:07 | Pharmacy Progress Note ---
Glycemic Control Progress Note Date of Service Nov 09, 2016. Scope Glycemic Pharmacist consulted for glycemic control to write orders per [facility] inpatient glycemic control protocol. Objective Accuchecks BSG (last 24hrs): Test 11/08/16 17:02 11/08/16 19:09 11/08/16 19:56 11/08/16 20:57 Bedside Glucose 124 mg/dl (70-99) 215 mg/dl (70-99) 234 mg/dl (70-99) 154 mg/dl (70-99) Test 11/08/16 22:10 11/09/16 00:06 11/09/16 00:47 11/09/16 02:03 Bedside Glucose 154 mg/dl (70-99) 71 mg/dl (70-99) 178 mg/dl (70-99) 100 mg/dl (70-99) Test 11/09/16 03:07 11/09/16 03:59 11/09/16 06:03 11/09/16 06:54 Bedside Glucose 121 mg/dl (70-99) 145 mg/dl (70-99) 118 mg/dl (70-99) 113 mg/dl (70-99) Test 11/09/16 07:51 11/09/16 08:00 11/09/16 09:21 11/09/16 10:03 Bedside Glucose 91 mg/dl (70-99) 198 mg/dl (70-99) 199 mg/dl (70-99) Random Glucose 91 mg/dl (70-99) Test 11/09/16 11:02 11/09/16 12:06 11/09/16 13:03 11/09/16 14:06 Bedside Glucose 195 mg/dl (70-99) 138 mg/dl (70-99) 134 mg/dl (70-99) 294 mg/dl (70-99) HbA1c: Test 11/08/16 05:39 Hemoglobin A1c 9.6 % (4.5-5.6) H Recent Pertinent Medications The patient is currently receiving: * Insulin infusion with rates ranging from 12.3-17.2 units/hr overnight and now closer to 4 units/hr Outpatient Anti-Diabetic Meds Novolog 70/30 - 35 units SQ qAM and 25 units qPM Assessment & Plan ASSESSMENT: * See progress note from 11/07/16 for more background info, in short: * Pt receiving SQ basal bolus insulin regimen for hyperglycemia secondary to baseline DM (outpatient regimen on hold),stress from thoracoscopy/pleurectomy POD 2, and type 2 diabetic diet * Patient is currently receiving an average of ??? units of insulin per day * 70 units of basal insulin * 11 units of prandial/correctional insulin * BSGs ranging 91 - 294 mg/dl over the past 24hrs * Insulin infusion as described above (overnight rates ranged from 8.8-12.3- 17.2 units/hr now currently around 4 units/hr) * Changes needed to insulin regimen: * AM Fasting BSG = 91 mg/dl. This is slightly below goal range for patient based on inpatient targets and co-morbidities. Yesterday, there was an attempt to transition the patient off the insulin infusion. Lantus 50 units was given. Rates still ranged near 8.8 units/hr so decision was made to not stop insulin infusion. Additional Lantus 20 units ordered last night. Now today, the insulin rates have decreased to closer to 4 units/hr so transition was prepped. Lantus 30 units was given with a 6 hour overlap. The full 24 hour Lantus dose was not given today as the patient received 70 units of basal yesterday. * Post-prandial BSGs are in range. For correctional insulin, the patient was started on weight-based stress of 3 as this correlated with Lantus dose. * Total daily dose is currently unknown. May determine range once insulin infusion ended. PLAN FOR INPATIENT GLYCEMIC CONTROL: * STARTING Lantus 30 units SQ BID * START correction factor of 15 mg/dl/unit * START carb ratio of1 unit per 5 grams CHO consumed * Continuing goal range to Low 110 mg/dL - High 140 mg/dL RECOMMENDATIONS FOR DISCHARGE: * More information will be determined based upon patient's insulin requirements here in hospital. However, with an A1C of 9.6%, the patient will most likely require titration of current home insulin regimen. Thank you.
[2016-11-09] MEDS: BUDESONIDE AQ (RHINOCORT AQ) NASAL SPRAY 32 MCG NAE SCH (20:32)
[2016-11-09] MEDS: SERTRALINE HCL 100 MG TAB PO SCH (20:33)
[2016-11-09] MEDS: QUETIAPINE FUMARATE 25 MG TAB PO SCH (20:33)
[2016-11-09] MEDS: TRAZODONE HCL 50 MG TAB PO SCH (20:33)
[2016-11-10] VITALS (7 sets, daily range): BP systolic 92–124; BP diastolic 60–75; PULSE 81–95; TEMP 36.5–36.7; O2SAT 88–98
[2016-11-10] MEDS: INSULIN ASPART 100 UNITS/ML 3 ML PEN SC SCH ×6 (00:04→21:00)
[2016-11-10] MEDS: OXYCODONE/ACETAMINOPHEN 5-325 TAB PO PRN ×2 (04:27→23:43)
[2016-11-10 05:36] LABS: HEMATOCRIT 32.1 % (42-52); MEAN CELL VOLUME 86.3 fL (80-100); MEAN CORPUSCULAR HGB CONC 33.6 g/dl (32-36); MEAN PLATELET VOLUME 9.1 fL (7.4-10.4); PLATELET COUNT 135 K/uL (130-400); RED BLOOD COUNT 3.72 M/uL (4.7-6.1); WHITE BLOOD COUNT 8.89 K/uL (4.8-10.8)
[2016-11-10 06:02] LABS: BUN/CREATININE RATIO 23.1 (10-20); CALCIUM 8.6 mg/dl (8.5-10.1); CREATININE 0.77 mg/dl (0.60-1.40); POTASSIUM 3.7 mmol/L (3.5-5.1)
--- NOTE | 2016-11-10 07:16 | Anesthesiology Progress Note ---
Anesthesia Post Op Note Date & Time Nov 10, 2016 at 07:16 Vital Signs Pain Intensity: 8.0 Vital Signs Past 12 Hours Date Time Temp Pulse Resp B/P (MAP) Pulse Ox O2 Delivery O2 Flow Rate FiO2 11/10/16 06:53 36.7 89 15 124/69 (87) 95 Room Air 11/10/16 00:44 88 Room Air 11/10/16 00:44 94 Nasal Cannula 2.0 11/09/16 23:29 36.9 79 16 100/67 (78) 90 Room Air 11/09/16 20:34 93 106/68 (81) 11/09/16 20:12 Room Air Notes Mental Status: alert / awake / arousable, participated in evaluation Pt Amnestic to Procedure: Yes Nausea / Vomiting: adequately controlled Pain: adequately controlled Airway Patency, RR, SpO2: stable & adequate BP & HR: stable & adequate Hydration State: stable & adequate Anesthetic Complications: no major complications apparent
--- NOTE | 2016-11-10 08:00 | DIAGNOSTIC IMAGING REPORT ---
CHEST ONE VIEW PORTABLE CLINICAL HISTORY: 76 years-old Male presenting with s/p VATS. TECHNIQUE: Portable upright AP view of the chest was obtained. COMPARISON: 11/09/2016. FINDINGS: Interval removal of the large bore left pleural drain. Median sternotomy wires and mediastinal surgical clips again noted. Cardiac silhouette top normal in size. No convincing evidence of residual pneumothorax. Left basilar opacity stable to slightly decreased from prior with persistent loculated small left pleural effusion. Degenerative changes of the right glenohumeral joint. Upper abdomen normal. IMPRESSION: 1. No evidence of residual pneumothorax at the left apex status post removal of the left pleural drain. 2. Stable to slight interval decrease in left basilar consolidation with persistent small loculated left pleural effusion. Electronically signed by: John Reed M.D. 11/10/2016 7:59 AM Dictated Date/Time: 11/10/2016 7:56 AM
[2016-11-10] MEDS: LOPERAMIDE HCL 2 MG CAP PO SCH (09:00)
[2016-11-10] MEDS: LORATADINE 10 MG TAB PO SCH (09:18)
[2016-11-10] MEDS: ROSUVASTATIN CALCIUM 10 MG TAB PO SCH (09:19)
[2016-11-10] MEDS: ASPIRIN 81 MG ECTAB PO SCH (09:19)
[2016-11-10] MEDS: METOPROLOL TARTRATE 25 MG TAB PO SCH ×2 (09:22→20:55)
[2016-11-10] MEDS: MULTIVITAMIN TAB PO SCH (09:23)
[2016-11-10] MEDS: LISINOPRIL 2.5 MG TAB PO SCH (09:23)
--- NOTE | 2016-11-10 09:26 | Pharmacy Progress Note ---
Glycemic Control Progress Note Date of Service Nov 10, 2016. Scope Glycemic Pharmacist consulted for glycemic control to write orders per [facility] inpatient glycemic control protocol. Objective Accuchecks BSG (last 24hrs): Test 11/09/16 09:21 11/09/16 10:03 11/09/16 11:02 11/09/16 12:06 Bedside Glucose 198 mg/dl (70-99) 199 mg/dl (70-99) 195 mg/dl (70-99) 138 mg/dl (70-99) Test 11/09/16 13:03 11/09/16 14:06 11/09/16 15:00 11/09/16 16:56 Bedside Glucose 134 mg/dl (70-99) 294 mg/dl (70-99) 253 mg/dl (70-99) 154 mg/dl (70-99) Test 11/09/16 20:15 11/09/16 23:52 11/10/16 03:56 11/10/16 05:09 Bedside Glucose 241 mg/dl (70-99) 178 mg/dl (70-99) 138 mg/dl (70-99) Random Glucose 127 mg/dl (70-99) Test 11/10/16 07:59 Bedside Glucose 144 mg/dl (70-99) HbA1c: Test 11/08/16 05:39 Hemoglobin A1c 9.6 % (4.5-5.6) H Recent Pertinent Medications The patient is currently receiving: * Basal insulin: Lantus 30 units every 12 hours * Correctional Insulin: Novolog Correction per scale ACHS Goal Range: Low 110 mg/dL - High 140 mg/dL Correction Factor: 15 mg/dL/unit * Prandial insulin: Per carb ratio of 1 unit per 5 grams CHO consumed Outpatient Anti-Diabetic Meds Novolog 70/30 35 units AM + 25 units PM Assessment & Plan ASSESSMENT: * 76 yo M admitted with pleural effusion, requiring basal/bolus insulin for BSGs consistently >180 * Known diabetic as outpatient on Novolog 70/30 * Held since admission due to increased risk of hypoglycemia/not recommended for inpatient use * A1c 9.6% indicative of poor glycemic control * Patient is currently receiving an average of 104 units of insulin per day * 60 units of basal insulin * 44 units of prandial/correctional insulin * BSGs ranging 91 - 241 mg/dl over the past 24hrs * Changes needed to insulin regimen: * AM Fasting BSG = 127 mg/dl. This is within goal range for patient based on inpatient targets and co-morbidities. Continue for now and titrate down as needed (currently wt based/stress of 3 which is aggressive) * Post-prandial BSGs elevated--> tighten Novolog PLAN FOR INPATIENT GLYCEMIC CONTROL: * Basal insulin * Lantus 30 units SQ BID * Bolus insulin * NovoLog per scale ACHS or Q6hrs while NPO * Goal Range: Low 110 mg/dL - High 140 mg/dL * Correction Factor: 10 mg/dL/unit * Nutritional / Prandial insulin per carb ratio of 1 unit per 4 grams CHO consumed RECOMMENDATIONS FOR DISCHARGE: * Given A1c, increase home insulin regimen. Specific doses TBD based on BSG trend inpatient. * Please note that the plan above was derived based on current level of insulin resistance and hospital stress. These recommendations are appropriate for inpatient admission only. Plan of care upon discharge will need to be reassessed to avoid potential outpatient hypo/hyperglycemia. Thank you.
[2016-11-10] MEDS: INSULIN GLARGINE SOLOSTAR 100 UNITS/ML 3 ML PEN SC SCH ×2 (09:30→21:01)
--- NOTE | 2016-11-10 09:47 | SURGERY PROGRESS NOTE ---
DATE: 11/10/2016 Mr. Wild is seen today. He looks much better today. He has been ambulating much to his chagrin. He readily admits he is not "enthusiastic about this." Saturations have been hovering in the low 90s and high 80s on room air. His chest x-ray today, on 11/10/2016, looks very good. He has no pneumothorax and really I see very little in the way of fluid in his left base. All in all, I am quite happy with him. The only problem is he is still an elderly male and having difficulty. I think he does qualify for inpatient rehabilitation. We are gong to check on that.
[2016-11-10] MEDS ORDERED: POLYETHYLENE (MIRALAX) 17 GM PACK PO PRN (10:30)
--- NOTE | 2016-11-10 10:32 | Hospitalist Progress Note ---
Hospitalist Progress Note Date of Service Nov 10, 2016. (Amarilis Huffman ., PA-C) Subjective Pt evaluation today including: conversation w/ patient, physical exam, chart review, lab review, review of studies, review of inpatient medication list Pain: None at rest PO Intake: Tolerating PO diet Voiding: no voiding problems Patient reports feeling well. He denies any chest pain at rest but does state that when he is transferring from bed to chair he has some pain at the chest tube site. He complains of dyspnea on exertion but denies shortness of breath at rest. The patient denies fevers, chills, sweats, chest pain, palpitations, claudication, cough, wheezing, shortness of breath, nausea, vomiting, abdominal pain, dysuria, hematuria, urinary retention, paralysis, weakness, numbness and tingling. Additional Comments: See HPI for pertinent positives and negatives. All other systems reviewed and negative. (Amarilis Huffman ., PA-C) Objective Vital Signs Date Time Temp Pulse Resp B/P (MAP) Pulse Ox O2 Delivery O2 Flow Rate FiO2 11/10/16 09:21 88 111/74 (86) 11/10/16 06:53 36.7 89 15 124/69 (87) 95 Room Air 11/10/16 00:44 88 Room Air 11/10/16 00:44 94 Nasal Cannula 2.0 11/09/16 23:29 36.9 79 16 100/67 (78) 90 Room Air 11/09/16 20:34 93 106/68 (81) 11/09/16 20:12 Room Air 11/09/16 16:38 94 20 96 11/09/16 16:10 36.4 103 18 100/68 (79) 93 Room Air 11/09/16 15:00 Room Air (Amarilis Huffman ., PA-C) Physical Exam Notes: General appearance: +Obese. Well-developed, well-nourished, no apparent distress Head: Normocephalic, atraumatic Eyes: Normal inspection, PERRL, EOMI ENT: Normal ENT inspection, hearing grossly normal, pharynx normal Neck: Supple, no JVD, trachea midline Respiratory/Chest: +Decreased breath sounds throughout, most marked in bases. Left chest covered in gauze. Incisions look c/d/i. Normal breath sounds, no respiratory distress Cardiovascular: +Systolic murmur. Regular rate & rhythm, no gallop, no murmur Abdomen/GI: Normal bowel sounds, non-tender, soft Extremities/Musculoskeletal: Normal inspection, no calf tenderness, no pedal edema Neurological/Psych: Alert, normal mood/affect, oriented x 3 Skin: Normal color, warm/dry, no rash (Amarilis Huffman PA-C) Laboratory Results Last 24 Hours Test 11/09/16 11:02 11/09/16 12:06 11/09/16 13:03 11/09/16 14:06 Bedside Glucose 195 mg/dl 138 mg/dl 134 mg/dl 294 mg/dl Test 11/09/16 15:00 11/09/16 16:56 11/09/16 20:15 11/09/16 23:52 Bedside Glucose 253 mg/dl 154 mg/dl 241 mg/dl 178 mg/dl Test 11/10/16 03:56 11/10/16 05:09 11/10/16 07:59 Bedside Glucose 138 mg/dl 144 mg/dl White Blood Count 8.89 K/uL Red Blood Count 3.72 M/uL Hemoglobin 10.8 g/dL Hematocrit 32.1 % Mean Corpuscular Volume 86.3 fL Mean Corpuscular Hemoglobin 29.0 pg Mean Corpuscular Hemoglobin Concent 33.6 g/dl RDW Standard Deviation 47.3 fL RDW Coefficient of Variation 15.0 % Platelet Count 135 K/uL Mean Platelet Volume 9.1 fL Sodium Level 137 mmol/L Potassium Level 3.7 mmol/L Chloride Level 104 mmol/L Carbon Dioxide Level 27 mmol/L Anion Gap 6.0 mmol/L Blood Urea Nitrogen 18 mg/dl Creatinine 0.77 mg/dl Est Creatinine Clear Calc Drug Dose 109.8 ml/min Estimated GFR () 103.6 Estimated GFR (Non- 89.4 BUN/Creatinine Ratio 23.1 Random Glucose 127 mg/dl Calcium Level 8.6 mg/dl (Amarilis Huffman PA-C) Diagnostic Results Reviewed the following studies and agree with interpretation as follows: Patient Name: TITI GAUTHIER Unit Number: [id number] Dictated: 11/10/16 [id number] Transcribed: 11/10/16 075 PBS Printed Date/Time: [~ rep prt dt]/[~ rep prt tm] [~ rep ct labl] - [~ rep ct ivnm] [facility] [place] [address] Dictated: 11/10/16755 Transcribed: 11/10/16 075 PBS Printed Date/Time: [~ rep prt dt]/[~ rep prt tm] [~ rep ct labl] - [~ rep ct ivnm] Patient: TITI GAUTHIER Address1: [address] [facility] Rec: [id number] Address2: [place] Acct ID: [id number] [facility] Zip: [place] [address] Date: 1940 Sex: M Room/Bed: [facility] Ref Phy: Handy Vyas D.O. SC: ROSA Att Phy: Humphrey Marie MD Report #: [id number] Angelina Phy: Handy Vyas D.O. Test: CXR1P Admit Phy: Humphrey Marie MD Vocational Evaluator: THEODORE Interpreting Phy: John Reed MD Diagnosis: LEFT PLEURAL EFFUSION, DIABETES TYPE 2 Ordering Phy: Humphrey Marie MD Service Date: 11/10/16 Admit Date: 11/08/1707/18/17 MNE: [id number] CONF: DICTATED BY: John Reed MD]] CC: Handy Vyas D.O. Whitlark, Joseph D., MD Endcc: [~ rep ct add3]] CHEST ONE VIEW PORTABLE CLINICAL HISTORY: 76 years-old Male presenting with s/p VATS. TECHNIQUE: Portable upright AP view of the chest was obtained. COMPARISON: 11/09/2016. FINDINGS: Interval removal of the large bore left pleural drain. Median sternotomy wires and mediastinal surgical clips again noted. Cardiac silhouette top normal in size. No convincing evidence of residual pneumothorax. Left basilar opacity stable to slightly decreased from prior with persistent loculated small left pleural effusion. Degenerative changes of the right glenohumeral joint. Upper abdomen normal. IMPRESSION: 1. No evidence of residual pneumothorax at the left apex status post removal of the left pleural drain. 2. Stable to slight interval decrease in left basilar consolidation with persistent small loculated left pleural effusion. Electronically signed by: John Reed M.D. 11/10/2016 7:59 AM Dictated Date/Time: 11/10/2016 7:56 AM The status of this report is Signed. Draft = Not yet reviewed or approved by Radiologist. Signed = Reviewed and approved by Radiologist. <AttendingPhy>Humphrey Marie MD</AttendingPhy> <FamilyPhy>Handy Vyas D.OFlakita</FamilyPhy> <PrimaryPhy>Handy Vyas D.O.</PrimaryPhy> <UnitNumber> [id number]</UnitNumber> <VisitNumber>[id number]</VisitNumber> <PatientName> TITI GAUTHIER</PatientName> <DateOfBirth>1940</DateOfBirth> <Location>[facility] </Location> <ServiceDate>11/07/16</ServiceDate> <MNE>ESINDI</MNE> <OrderingPhy> Humphrey Marie MD</OrderingPhy> <OrderingPhyMNE>f rep ord dr berg</ OrderingPhyMNE> <DictatingPhyMNE>f rep dict dr berg</DictatingPhyMNE> <CCListMNE> f rep ct mne</CCListMNE> <AdmittingPhyMNE>f pt admit dr berg</AdmittingPhyMNE> < AttendingPhyMNE>f pt attend dr berg</AttendingPhyMNE> <ConsultingPhyMNE>f pt consult dr berg</ConsultingPhyMNE> <FamilyPhyMNE>f pt fam dr berg</FamilyPhyMNE> <OtherPhyMNE>f pt other dr berg</OtherPhyMNE> < PrimaryPhyMNE>f pt prim care dr berg</PrimaryPhyMNE> <ReferringPhyMNE>f pt referring dr berg</ReferringPhyMNE> (Amarilis Huffman ., YULISSA) Assessment and Plan 76 y/o male with a history of CAD s/p CABG, HTN, HLD, DM II, and depression who presents s/p VATS w/decortication on 11/[address] Marie for medical management. S/p VATS procedure--stable. POD #3 -Transferred to med/surg from ICU on 11/08 -Pain management, chest tube management, DVT prophylaxis, and PT/OT as per primary team -Leukocytosis resolved today. WBC 8.89 on 11/10 -CXR on 11/10 shows no residual pneumothorax. Slight interval decrease in left basilar consolidation. CAD s/p CABG, HTN, HLD--stable -Continue ASA 81 mg PO qd, lisinopril 2.5 mg PO qd, Lopressor 25 mg PO BID, and Crestor 10 mg PO qhs DM II -HgbA1c 9.6 on 11/08 -Pharmacy consulted for glycemic control -Lantus 30 units SC q12h -Insulin sliding scale -Insulin drip d/c'd -Check BSGs q ac and qhs Depression -Continue Zoloft 100 mg PO qhs and Seroquel 50 mg PO qhs Code Status -Level I, FULL RESUSCITATION STATUS Thank you for this consultation. We will continue to follow. (Amarilis Huffman ., PA-C) PA Physician Supervision Note: I interviewed and examined the patient. Discussed with Amarilis Huffman PAC and agree with findings and plan as documented in the note. Any exceptions or clarifications are listed here: None Patient status post VATS procedure with decortication for recurrent pleural effusion he is doing well pain control is good is not moving about as well as Dr. Kian Sanchez would like Vital signs are stable He's decreased breath sounds at left base otherwise lungs are clear, diabetes is being managed via glycemic management cardiovascular disease is stable Documented By: Nilesh Bella (Nilesh Bella M.D.)
[2016-11-10] MEDS ORDERED: POLYETHYLENE (MIRALAX) 17 GM PACK PO SCH (11:30)
--- NOTE | 2016-11-10 12:05 | Progress Note ---
Post ICU Progress Note Date & Time Nov 10, 2016 at 12:03 Vital Signs Vital Signs Past 12 Hours Date Time Temp Pulse Resp B/P (MAP) Pulse Ox O2 Delivery O2 Flow Rate FiO2 11/10/16 09:21 88 111/74 (86) 11/10/16 07:35 Nasal Cannula 2.0 11/10/16 06:53 36.7 89 15 124/69 (87) 95 Room Air 11/10/16 00:44 88 Room Air 11/10/16 00:44 94 Nasal Cannula 2.0 Notes Mental Status: alert / awake, participated in evaluation Nausea / Vomiting: adequately controlled Pain: adequately controlled Airway Patency, RR, SpO2: stable & adequate BP & HR: stable & adequate Patient monitored in the ICU overnight status post RIGHT VATS. Started on insulin drip secondary to significant hyperglycemia. Seems to be well tolerated. Chest tube has been discontinued. The patient is tolerating by mouth food and fluids well. Patient offers no complaints this time. Apparently , discharge is pending usp facility placement. Consider outpatient follow up in 1 to 2 weeks with: Dr. Marie Repeat imaging needed: Per Dr. Marie Follow up cultures: None Reviewed progress notes, labs, and inpatient medication list Continue current management Additional recommendations: None at this time Please feel free to reconsult as needed. Critical Car Team will sign off at this point. Consults & Procedures Consultants: Cardiothoracic: Dr. Marie Procedures: PIVs Right Radial Arterial Line In Place Left VATS w/ drainage of pleural effusion and decortication Left chest tube
[2016-11-10] MEDS: BUDESONIDE AQ (RHINOCORT AQ) NASAL SPRAY 32 MCG NAE SCH (20:53)
[2016-11-10] MEDS: QUETIAPINE FUMARATE 25 MG TAB PO SCH (20:53)
[2016-11-10] MEDS: TRAZODONE HCL 50 MG TAB PO SCH (20:53)
[2016-11-10] MEDS: SERTRALINE HCL 100 MG TAB PO SCH (20:53)
[2016-11-11] MEDS: OXYCODONE/ACETAMINOPHEN 5-325 TAB PO PRN (06:05)
[2016-11-11 06:31] VITALS: O2SAT 94
[2016-11-11 06:54] LABS: HEMATOCRIT 33.1 % (42-52); MEAN CORPUSCULAR HEMOGLOBIN 29.1 pg (25-34); MEAN CORPUSCULAR HGB CONC 33.8 g/dl (32-36); MEAN PLATELET VOLUME 8.3 fL (7.4-10.4); PLATELET COUNT 147 K/uL (130-400); RED BLOOD COUNT 3.85 M/uL (4.7-6.1); WHITE BLOOD COUNT 7.12 K/uL (4.8-10.8)
[2016-11-11 07:31] LABS: CALCIUM 9.2 mg/dl (8.5-10.1); CREATININE 0.79 mg/dl (0.60-1.40); POTASSIUM 3.6 mmol/L (3.5-5.1)
[2016-11-11 08:00] VITALS: BP 105/68; PULSE 88; TEMP 36.9; O2SAT 94
[2016-11-11] MEDS ORDERED: TRAM-10 PO (08:34)
[2016-11-11] MEDS: LORATADINE 10 MG TAB PO SCH (08:57)
[2016-11-11] MEDS: MULTIVITAMIN TAB PO SCH (08:58)
[2016-11-11] MEDS: LOPERAMIDE HCL 2 MG CAP PO SCH (08:58)
[2016-11-11] MEDS: ROSUVASTATIN CALCIUM 10 MG TAB PO SCH (08:58)
[2016-11-11] MEDS: ASPIRIN 81 MG ECTAB PO SCH (08:58)
[2016-11-11] MEDS ORDERED: INSULIN GLARGINE SOLOSTAR 100 UNITS/ML 3 ML PEN SC SCH (09:00)
[2016-11-11 09:04] VITALS: BP 115/71; PULSE 92
[2016-11-11] MEDS: METOPROLOL TARTRATE 25 MG TAB PO SCH (09:05)
[2016-11-11] MEDS: LISINOPRIL 2.5 MG TAB PO SCH (09:06)
[2016-11-11] MEDS: INSULIN ASPART 100 UNITS/ML 3 ML PEN SC SCH ×2 (09:08→13:09)
--- NOTE | 2016-11-11 10:49 | Pharmacy Progress Note ---
Glycemic Control Progress Note Date of Service Nov 11, 2016. Scope Glycemic Pharmacist consulted for glycemic control to write orders per [facility] inpatient glycemic control protocol. Objective Accuchecks BSG (last 24hrs): Test 11/10/16 11:49 11/10/16 16:45 11/10/16 20:52 11/11/16 06:44 Bedside Glucose 253 mg/dl (70-99) 209 mg/dl (70-99) 198 mg/dl (70-99) Random Glucose 170 mg/dl (70-99) Test 11/11/16 08:12 Bedside Glucose 163 mg/dl (70-99) HbA1c: Test 11/08/16 05:39 Hemoglobin A1c 9.6 % (4.5-5.6) H Recent Pertinent Medications The patient is currently receiving: * Basal insulin: Lantus 30 units every 12 hours * Correctional Insulin: Novolog Correction per scale ACHS Goal Range: Low 110 mg/dL - High 140 mg/dL Correction Factor: 10 mg/dL/unit * Prandial insulin: Per carb ratio of 1 unit per 4 grams CHO consumed Outpatient Anti-Diabetic Meds NOVOLOG 70/30 BID Assessment & Plan ASSESSMENT: * 76 yo M admitted with pleural effusion, requiring basal/bolus insulin for BSGs consistently >180 * Known diabetic as outpatient on Novolog 70/30 * Held since admission due to increased risk of hypoglycemia/not recommended for inpatient use * A1c 9.6% indicative of poor glycemic control * Patient is currently receiving an average of 112 units of insulin per day * 60 units of basal insulin * 52 units of prandial/correctional insulin * BSGs ranging 127-253 mg/dl over the past 24hrs * Changes needed to insulin regimen: * AM Fasting BSG = 163 mg/dl. This is above goal range for patient based on inpatient targets and co-morbidities. Increase Lantus by 20%. * Post-prandial BSGs elevated--> tighten Novolog * Notes/Comments: * Current regimen is tighter than wt based/stress of 3 * Continue to titrate with caution PLAN FOR INPATIENT GLYCEMIC CONTROL: * Basal insulin: Increase * Lantus 35 units SQ BID * Bolus insulin: Tighten * NovoLog per scale ACHS or Q6hrs while NPO * Goal Range: Low 110 mg/dL - High 140 mg/dL * Correction Factor: 10 mg/dL/unit * Nutritional / Prandial insulin per carb ratio of 1 unit per 3 grams CHO consumed RECOMMENDATIONS FOR DISCHARGE: * Given A1c, increase home insulin regimen. Specific doses TBD based on BSG trend inpatient. * Please note that the plan above was derived based on current level of insulin resistance and hospital stress. These recommendations are appropriate for inpatient admission only. Plan of care upon discharge will need to be reassessed to avoid potential outpatient hypo/hyperglycemia. Thank you.
[2016-11-11 10:59] VITALS: O2SAT 95
[2016-11-11] MEDS ORDERED: POLYETHYLENE (MIRALAX) 17 GM PACK PO SCH (11:30)
[2016-11-11] MEDS ORDERED: DOCUSATE SODIUM 100 MG CAP PO SCH (11:30)
--- NOTE | 2016-11-11 11:39 | Discharge Instructions ---
Discharge Instructions Date of Service Nov 11, 2016. Admission Reason for Admission: Left Pleural Effusion, Diabetes Type 2 Discharge Discharge Diagnosis / Problem: Left Pleural Effusion Discharge Goals Goal(s): Improve function Activity Recommendations Activity Level: Up Ad Gabriella, Assistance Required Therapies: Physical Therapy, Occupational Therapy . Additional Information Patient informed of condition: Yes Advance Directives: No DNR: No Level of Care: Acute Rehab Communicable Disease: No Prognosis: Improving Oxygen at (LPM): N/A Isaacs Catheter: No Instructions / Follow-Up Instructions / Follow-Up 1. Dressings may be removed in 3 days. Patient may shower thereafter. No tub baths. 2. Do not fly until cleared to do so by Dr. Marie. 3. Office appointment with Dr. Marie in 1-2 weeks. Office will call with date and time of appointment. Patient will need to go to hospital 1 hour before appointment to have a chest x-ray taken. Current Hospital Diet Patient's current hospital diet: Diabetes Type 2 Diet Discharge Diet Recommended Diet: Diabetes Type 1 Diet Fluid Restriction: None Procedures Procedures Performed: Left Video-Assisted Thoracoscopy - Drainage of Effusion and Decortication Pending Studies Studies pending at discharge: no Laboratory Results Hemoglobin A1c Test 11/08/16 05:39 Range/Units Estimated Average Glucose 229 mg/dl Hemoglobin A1c 9.6 H 4.5-5.6 % Medical Emergencies . Who to Call and When: Medical Emergencies: If at any time you feel your situation is an emergency, please call 911 immediately. . Non-Emergent Contact Non-Emergency issues call your: Surgeon Call Non-Emergent contact if: you have a fever, your pain is not controlled, wound has increased drainage . . "Provider Documentation" section prepared by Juvencio Connolly. . Core Measure Problem Core Measures: None
[2016-11-11 13:24] VITALS: BP 115/71; PULSE 92; TEMP 36.9; O2SAT 95
--- NOTE | 2016-11-11 14:52 | DISCHARGE SUMMARY ---
DATE OF DISCHARGE: 11/11/2016 DISCHARGE DIAGNOSES: 1. Complicated left pleural effusion with trapped left lower lobe. 2. Status post aortic valve replacement and coronary artery bypass grafting. 3. Coronary artery disease. 4. Depression. 5. Diabetes mellitus. 6. Diabetic nephropathy. 7. Dyslipidemia. 8. Hypertension. 9. Obesity. 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 The patient is a bit confused at times and told me initially it was just back in January 2016. He developed a left pleural effusion and underwent a thoracentesis for 800 mL of fluid which recurred. He underwent another tap of [address] scan showed loculations. Dr. Murray Chavez asked me to see him. We evaluated him and felt he would be a candidate for decortication. On 11/07/2016 the patient underwent an uncomplicated left thoracoscopy and I did an extensive decortication. This all appeared to be old blood and indeed the pathology reports confirmed this. I did a very meticulous decortication and removed all of the peel on the lower lobe and the upper lobe. We watched him in the intensive care unit overnight and he did very well. I moved him up to the floor. We really pushed him to get him to walk. We got him off of oxygen. He got his chest tube out on postop day 2. X-ray looked very good. He was making very good urine. His labs looked very good at the time he was discharged. He was on room air and ambulating. He was discharged home to the [facility] in [place], [place] for further rehab. His incisions were clean. He was eating. Quite frankly, I think he did very well. We will see him back in the office in about 2 weeks with a chest x-ray. I have instructed the [facility] to call me should any problems occur.
--- NOTE | 2016-11-11 18:13 | Progress Note ---
Subjective Date of Service: Nov 11, 2016. Subjective Pt evaluation today including: conversation w/ patient, physical exam, chart review, lab review Pain: none reported PO Intake: normal Voiding: no voiding problems c/o that his bowel movement earlier today was hard and requests stool softeners he is aware of impending d/c to the [facility] in [place] Problem List Medical Problems: (1) CAD (coronary artery disease) Status: Chronic (2) Depression Status: Chronic (3) Diabetes Status: Chronic (4) Heart disease Status: Acute (5) Hypertension Status: Chronic (6) Pleural effusion on left Status: Chronic Surgical Problems: (1) H/O aortic valve replacement Status: Chronic Review of Systems Constitutional: No fever Respiratory: No cough, No shortness of breath Cardiac: No chest pain Abdomen: No pain Objective Vital Signs Date Time Temp Pulse Resp B/P (MAP) Pulse Ox O2 Delivery O2 Flow Rate FiO2 11/11/16 13:24 36.9 92 14 95 Room Air 11/11/16 10:59 95 Room Air 11/11/16 09:04 92 115/71 (86) 11/11/16 08:00 94 Room Air 11/11/16 08:00 36.9 88 14 105/68 (80) 94 Room Air 11/11/16 07:10 Room Air 11/11/16 06:31 94 Room Air 11/10/16 23:30 Room Air 11/10/16 22:45 36.5 95 18 108/69 (82) 95 Room Air 11/10/16 20:50 92 92/70 (77) Physical Exam General Appearance: no apparent distress ENT: pharynx normal Neck: no JVD Respiratory/Chest: lungs clear, no respiratory distress, no accessory muscle use, + decreased breath sounds (left base) Cardiovascular: regular rate, rhythm, no gallop, no murmur Abdomen: normal bowel sounds, non tender, soft, no organomegaly Extremities: no pedal edema Neurologic/Psychiatric: alert, oriented x 3 Skin: + pertinent finding (dressings intact to left posterior chest wall ) Laboratory Results Last 24 Hours Test 11/10/16 20:52 11/11/16 06:44 11/11/16 08:12 11/11/16 12:16 Bedside Glucose 198 mg/dl 163 mg/dl 203 mg/dl White Blood Count 7.12 K/uL Red Blood Count 3.85 M/uL Hemoglobin 11.2 g/dL Hematocrit 33.1 % Mean Corpuscular Volume 86.0 fL Mean Corpuscular Hemoglobin 29.1 pg Mean Corpuscular Hemoglobin Concent 33.8 g/dl RDW Standard Deviation 47.5 fL RDW Coefficient of Variation 14.9 % Platelet Count 147 K/uL Mean Platelet Volume 8.3 fL Sodium Level 137 mmol/L Potassium Level 3.6 mmol/L Chloride Level 103 mmol/L Carbon Dioxide Level 27 mmol/L Anion Gap 7.0 mmol/L Blood Urea Nitrogen 19 mg/dl Creatinine 0.79 mg/dl Est Creatinine Clear Calc Drug Dose 107.0 ml/min Estimated GFR () 102.5 Estimated GFR (Non- 88.5 BUN/Creatinine Ratio 24.0 Random Glucose 170 mg/dl Calcium Level 9.2 mg/dl Assessment and Plan 76 y/o male with a history of CAD s/p CABG, HTN, HLD, DM II, and depression who is now POD #4 s/p VATS w/decortication by Dr. Marie. 1. recurrent left-sided pleural effusion s/p VATS procedure - POD #4. CXR on 11/10 showed no residual pneumothorax. Slight interval decrease in left basilar consolidation. From surgical standpoint doing well. Stable O2 sats in room air. 2. CAD s/p CABG - -Continue ASA 81 mg PO qd, lisinopril 2.5 mg PO qd, Lopressor 25 mg PO BID, and Crestor 10 mg PO qhs 3. HTN - controlled; cont current meds. 4. T2DM - control largely adequate although with some high readings over 200. Pharmacy managing. To be placed back on home 70/30 regimen upon d/c to rehab. 5. constipation - add miralax daily. 6. Depression -Continue Zoloft 100 mg PO qhs and Seroquel 50 mg PO qhs 7. hyponatremia - resolved. 8. hypomagnesemia and hypophosphatemia - resolved. from medical standpoint can d/c today to go to rehab
== END 2016-11-11 15:25 | DRG 164 ==
LOC: C.ACU 06:59 → C.MSICU 15:36 → ENRESERV 16:06 → C.MSW 11-08 10:36
PROVIDERS: ADMIT Surgery; ATTEND Surgery
PROC: 0W9B40Z Drainage of Left Pleural Cavity with Drainage Device, Percutaneous Endoscopic Approach (ICD-10-PCS; principal; 2016-11-07 08:45)
PROC: 0BDP4ZZ Extraction of Left Pleura, Percutaneous Endoscopic Approach (ICD-10-PCS; principal; 2016-11-07 08:45)
PROC: 0BBP4ZZ Excision of Left Pleura, Percutaneous Endoscopic Approach (ICD-10-PCS; principal; 2016-11-07 08:45)
DX: J90 Pleural effusion, not elsewhere classified (principal); E87.1 Hypo-osmolality and hyponatremia; I25.10 Atherosclerotic heart disease of native coronary artery without angina pectoris; F32.9 Major depressive disorder, single episode, unspecified; E11.21 Type 2 diabetes mellitus with diabetic nephropathy; E11.40 Type 2 diabetes mellitus with diabetic neuropathy, unspecified; E78.5 Hyperlipidemia, unspecified; I10 Essential (primary) hypertension; R35.0 Frequency of micturition; R39.15 Urgency of urination; I25.2 Old myocardial infarction; Z95.2 Presence of prosthetic heart valve; Z95.818 Presence of other cardiac implants and grafts; Z95.1 Presence of aortocoronary bypass graft; E66.9 Obesity, unspecified; J44.9 Chronic obstructive pulmonary disease, unspecified; Z87.891 Personal history of nicotine dependence; E83.42 Hypomagnesemia; E83.39 Other disorders of phosphorus metabolism